=== PATIENT | male | born 1945 | race Caucasian/White ===

== ENCOUNTER 2023-03-21 12:29 | Observation (INO) | payer OTHER, SELFPAY ==
[2023-03-21] VITALS (14 sets, daily range): BP systolic 94–114; BP diastolic 59–77; PULSE 71–118; RESP 16–21; TEMP 36.2–36.8; O2SAT 86–99; BMI 17.9
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
--- NOTE | 2023-03-21 12:43 | XR_ITS ---
WS: [id number] Portable AP upright chest, 03/21/2023 Clinical Data: sob Comparison: None. Findings: There is a 9.0 cm mass in the medial base of the right thorax. The mass shows mixed density and may represent atelectasis and/or pneumonia. There are are interstitial markings in both lower lo bes most consistent with chronic interstitial fibrosis. The upper lobes are clear most consistent wit h emphysema. The diaphragms are flattened. No pneumothorax is seen. The heart size is normal. The aor tic arch and descending thoracic aorta shows calcification and tortuosity. There is an infusion jack ter entering from the right and ending in the superior vena cava. XR/XR chest 1V portable [id number] Impression: 1. 9.0 cm mass in the medial aspect of the lower right pleural space which may represent atelectasis, pneumonia or even a tumor. 2. Chronic interstitial lung disease with upper lobe emphysema. 3. Atherosclerosis and hyperinflation.
--- NOTE | 2023-03-21 12:43 | ECG_ITS ---
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 Measurements Intervals [place] Rate: 100 P: 73 MA: 174 QRS: 81 QRSD: 88 T: 72 QT: 340 QTc: 440 Interpretive Statements SINUS TACHYCARDIA ABNORMAL RHYTHM ECG No previous ECG available for comparison Electronically Signed On 03-23-2023 6:09:05 CDT by Aylin Soto M.D. [id number]
[2023-03-21 13:04] LABS: ABG PCO2 35.1 mmHg (35-45); ABG PH Result 7.48 (7.35-7.45); Arterial Blood Gas Hematocrit 40.8 % (42-52); Base Excess ABG 2.9 mmol/L (-2.0-2.0); Blood Gas Allen Test Pos; Blood Gas Operator Identificat WALCI; Blood Gas Sample Site Radial, right; Blood Gas Sample Type Arterial; HCO3 ABG 26.2 mmol/L (22-26); Oxygen Device NC; PO2 ABG 68.5 mmHg (80.0-100.0)
[2023-03-21 13:08] LABS: Basophils # 0.1 10^3/uL (0.0-0.1); Basophils % 0.7 %; Eosinophils # 0.1 10^3/uL (0.0-0.8); Eosinophils % 1.3 %; Hematocrit 45.2 % (42.0-52.0); Hemoglobin 13.6 g/dL (11.7-16.6); Lymphocytes # 1.3 10^3/uL (0.8-4.8); Lymphocytes % 18.2 %; Mean Corpuscular HGB Conc 30.1 g/dL (30.0-36.0); Mean Corpuscular Hemoglobin 25.6 pg (28.0-34.0); Mean Platelet Volume 8.2 fL (7.4-10.4); Monocytes # 0.7 10^3/uL (0.2-0.9); Monocytes % 9.9 %; Neutrophils # 4.98 10^3/uL (1.8-7.7); Neutrophils % 69.1 %; Nucleated Red Blood Cells % 0 %; Platelet Count 311 10^3/cmm (130-400); Red Blood Count 5.32 10^6/uL (4.1-5.3); Red Cell Distribution Width 17.2 % (12.1-15.1); White Blood Count 7.2 10^3/uL (4.0-10.0)
[2023-03-21] MEDS: ipratropium-albuterol 3 mL Neb INHALATION (13:09)
[2023-03-21 13:20] LABS: D Dimer 1.44 ug/mIFEU (0-0.59)
--- NOTE | 2023-03-21 13:21 | CT_ITS ---
WS: [id number] CT CHEST ANGIOGRAPHY WITH REFORMATS HISTORY: sob, cp, hx cancer, elevated ddimer, tachycardia TECHNIQUE: Contiguous axial images are obtained through the chest during arterial injection of intrav enous contrast. Images are reconstructed to evaluate the pulmonary arteries. MIP imaging also reviewe d. All CT scans at [facility] use at least one of these dose optimization techniques: automat ed exposure control; mA and/or kV adjustment per patient size (includes targeted exams where dose is matched to clinical indication); or iterative reconstruction. CONTRAST: Omnipaque 350; 100 mL IV. DLP: 232.70 mGy.cm COMPARISON: None available. Good opacification of the pulmonary arteries. No pulmonary emboli. Moderate atherosclerotic plaque th oracic aorta. No aneurysm. No RIGHT heart strain. Cardiac chambers are very slightly enlarged. No per icardial or pleural effusions. Advanced centrilobular emphysema. No pulmonary mass. Prior esophagectomy with esophageal pull-through . No prior studies are available to evaluate for interval change. Surgical changes of the esophagus a nd stomach pull-through appear appropriate with no obstruction. No mediastinal or hilar adenopathy. There is a low-attenuation mass in the superior RIGHT lobe of the liver measuring 1.7 cm. Hounsfield units are low suggesting this may be a cyst. No adrenal mass. Numerous nonobstructing calcifications upper pole LEFT kidney. Mild anterior wedging of several thoracic vertebral bodies including T5, T8, T9, T10. No osteoblastic or osteolytic disease. CT/CT angio chest PE protcl [id number] IMPRESSION: 1. No pulmonary embolism. 2. No RIGHT heart strain. 3. Severe centrilobular emphysema. 4. Status post esophagectomy with esophageal pull-through. No mediastinal radha opathy. 5. Indeterminate RIGHT hepatic mass measuring 1.7 cm. Hounsfield units are low suggesting this is likely a cyst. This can be reevaluated on follow-up CT eval uation for metastatic disease. No prior studies for comparison.
[2023-03-21 13:25] LABS: Troponin(5th) Baseline 15 ng/L (0-15)
[2023-03-21 13:28] LABS: Alanine Aminotransferase 48 U/L (0-41); Albumin Level 3.3 g/dL (3.5-5.2); Alkaline Phosphatase 115 U/L (40-130); Anion Gap 14.1 (5-19); Aspartate Amino Transferase 43 U/L (0-40); Blood Urea Nitrogen 13 mg/dL (8-23); Calcium 9.2 mg/dL (8.5-10.5); Carbon Dioxide 27 mmol/L (22-29); Chloride 99 mmol/L (98-107); Globulin 3.5 g/dL (1.3-4.6); Glucose 114 mg/dL (65-115); Lipase 10 U/L (13-60); Osmolality Calculated 283 mOsm/kg (285-295); Potassium 4.1 mmol/L (3.5-5.1); Sodium 136 mmol/L (136-145); Total Bilirubin 0.7 mg/dL (0.15-1.2); Total Protein 6.8 g/dL (6.6-8.7)
[2023-03-21 14:07] LABS: SARS Covid-2 Antigen negative
[2023-03-21] MEDS: iohexol 350 mg/mL 500 mL Btl (per mL) IV (14:08)
--- NOTE | 2023-03-21 14:43 | ECG_ITS ---
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 Measurements Intervals [place] Rate: 103 P: 49 MS: 184 QRS: 73 QRSD: 84 T: 27 QT: 329 QTc: 432 Interpretive Statements SINUS TACHYCARDIA ABNORMAL RHYTHM ECG Compared to ECG 03/21/2023 13:04:04 No significant changes Electronically Signed On 03-23-2023 6:55:02 CDT by Aylin Soto M.D. [id number]
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
--- NOTE | 2023-03-21 15:10 | PC.PHAR ---
PTS STS PT TAKES A MEDICATION TO STIMULATE HIS APATITE BUT DOES NOT KNOW THE NAME OF IT
--- NOTE | 2023-03-21 15:12 | PC.PHAR ---
[facility]ILL[facility] AND [facility] ARE ALSO UNABLE TO CONFIRM THE MEDICATION
[2023-03-21] MEDS: doxycycline 100 MG in sodium chloride 0.9% (plus) 100 ML IV (15:14)
[2023-03-21] MEDS: predniSONE 20 mg Tablet 60 MG PO (15:15)
[2023-03-21 16:00] LABS: Troponin 5 2HR Delta -2 ABS# (0-10)
[2023-03-21] MEDS: enoxaparin 40 mg/0.4 mL Syringe SUBCUT (17:37)
--- NOTE | 2023-03-21 18:36 | USCV_ITS ---
Miguel Boyle Age: 77 Gender: M : 1945 Exam Date: 03/21/2023 20:48 Ordering Phys: Juan José Shannon MD Technologist: RODERICK Exam Location: [facility] [place] Indication: rule out chemotherapy cardiac toxicity. History of COPD. BP: 94 / 59 HR: 91 Rhythm: Sinus Technical Quality: Poor secondary to COPD MEASUREMENTS (Male / Female) Normal Values 2D ECHO LV Diastolic Diameter PLAX 3.4 cm 4.2 - 5.9 / 3.9 - 5.3 cm LV Systolic Diameter PLAX 2.3 cm IVS Diastolic Thickness 1.5 cm 0.6 - 1.0 / 0.6 - 0.9 cm IVS Systolic Thickness 1.7 cm LVPW Diastolic Thickness 1.2 cm 0.6 - 1.0 / 0.6 - 0.9 cm LVPW Systolic Thickness 1.6 cm LVOT Diameter 2.1 cm LV Ejection Fraction 2D Teich 63.4 % LV Ejection Fraction MOD 2C 64.5 % LV Ejection Fraction 2C AL 64.7 % LA Diameter 3.8 cm LA Width 0.0 cm LA Height 3.6 cm RA Width 3.1 cm RA Height 3.8 cm Aorta at Sinotubular Diameter 2.9 cm IVC Diameter 1.8 cm M-MODE Aortic Annulus Diameter 3.1 cm LA Ao Ratio MM 1.4 MV E Point Septal Separation 0.4 cm DOPPLER AV Peak Velocity 93.0 cm/s LVOT Peak Velocity 75.0 cm/s AV Area Cont Eq vti 3.1 cm squared AV Area Cont Eq pk 2.9 cm squared MV Peak Velocity 125.0 cm/s MV Area PHT 2.9 cm squared Mitral E to A Ratio 0.6 MV E' Velocity 33.0 cm/s Mitral E to MV E' Ratio 13.6 Mitral E to LV E' Lateral Ratio 13.6 Mitral E to LV E' Septal Ratio 13.9 TV Peak E Velocity 27.0 cm/s FINDINGS Left Ventricle Normal left ventricular size, systolic function with no regional wall motion abnormalities. Left ventricular ejection fraction is estimated at 60 %. Right Ventricle Normal right ventricular size and systolic function. RVSP could not be calculated due to incomplete tricuspid regurgitation velocity profile. Right Atrium Normal right atrial size. Left Atrium Normal left atrial size. Mitral Valve Mild mitral annular calcification. Thickened mitral valve. No mitral valve stenosis. No mitral valve regurgitation. Aortic Valve Aortic valve not well visualized. No aortic valve stenosis. No aortic valve regurgitation. Tricuspid Valve Structurally normal tricuspid valve. No tricuspid valve stenosis. No tricuspid valve regurgitation. Pulmonic Valve Pulmonic valve not well visualized. Pericardium No pericardial effusion. Aorta Normal size aortic root. IVC Normal IVC dimension with >50% respiratory change of the inferior vena cava. CONCLUSIONS 1. Normal left ventricular size, systolic function with no regional wall motion abnormalities. Left ventricular ejection fraction is estimated at 60 %. 2. No change when compared to study dated 03/11/2023. Aylin Soto MD (Electronically Signed) Final Date: 22 Mar 2023 13:34 S
--- NOTE | 2023-03-21 18:43 | ECG_ITS ---
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 Measurements Intervals [place] Rate: 102 P: 57 KS: 183 QRS: 39 QRSD: 82 T: 65 QT: 337 QTc: 440 Interpretive Statements SINUS TACHYCARDIA WITH OCCASIONAL SUPRAVENTRICULAR PREMATURE COMPLEXES ABNORMAL RHYTHM ECG Compared to ECG 03/21/2023 15:01:42 No significant changes Electronically Signed On 03-23-2023 6:51:46 CDT by Aylin Soto M.D. [id number]
[2023-03-21 19:33] LABS: Troponin 5 6HR 10.95 ng/L (0-15)
[2023-03-21 19:43] LABS: Troponin 5 6HR Delta -4.05 ng/L (0-12)
[2023-03-22] VITALS (7 sets, daily range): BP systolic 94–127; BP diastolic 62–77; PULSE 55–78; RESP 16–20; TEMP 36.4–36.5; O2SAT 87–94
[2023-03-22 02:57] LABS: Anion Gap 12.5 (5-19); Blood Urea Nitrogen 16 mg/dL (8-23); C Reactive Protein 6.8 mg/L (0.0-4.9); Calcium 8.4 mg/dL (8.5-10.5); Carbon Dioxide 25 mmol/L (22-29); Chloride 104 mmol/L (98-107); Glucose 284 mg/dL (65-115); Magnesium 1.8 mg/dL (1.7-2.3); Osmolality Calculated 295 mOsm/kg (285-295); Potassium 4.5 mmol/L (3.5-5.1); Sodium 137 mmol/L (136-145)
--- NOTE | 2023-03-22 06:41 | P.DS_ITS ---
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 Song who is a 77-year-old male has history of recurrent/metastatic esophageal cancer, recently treated with systemic therapy with FOLFOX/Herceptin/Keytruda, follow-up CT PET scan showed excellent response, follows up with Dr. Rebollar, presented to the hospital for mild shortness of breath productive cough clear sputum production, he has remained afebrile, no evidence of chest pain or diarrhea, at home uses 2 L of oxygen, in the hospital he was requiring 3 L on exertion, CTA ruled out PE, CT chest did not show active consolidation, however he was given azithromycin and ceftriaxone for 1 day, patient is not endorsing any significant respiratory distress, he was due for an echo which I requested before his discharge to rule out cardiotoxicity related to his chemotherapy. CT imaging of chest also picked up hypodense area on the liver which could be cyst versus metastatic tumor? Patient is full code, he will be able to go home on oxygen after home oxygen evaluation. He remained hemodynamically stable and afebrile. Physical Exam Narrative: Hemodynamically stable Currently on 3 L Abdomen soft Euvolemic Pleasant and cooperative Nonfocal neuro exam Discharge Data Studies Completed and Pending Completed Studies During Hospitalization Category Date Time Status CTA chest [CT angio chest PE protcl [id number]] Stat Cat Scan 03/21/23 13:21 Completed XR chest 1V portable [id number] Stat Exams 03/21/23 12:43 Completed Pending at discharge Category Date Time Status CT abdomen pelvis wo con [id number] Routine Cat Scan 03/22/23 07:00 Ordered MRSA by PCR Stat Lab 03/21/23 15:43 Received CV. echo complete* [id number] Routine Ultrasound 03/21/23 18:36 Taken Radiology Impressions Chest X-Ray 03/21/23 12:43 Impression: 1. 9.0 cm mass in the medial aspect of the lower right pleural space which may represent atelectasis, pneumonia or even a tumor. 2. Chronic interstitial lung disease with upper lobe emphysema. 3. Atherosclerosis and hyperinflation. Chest CTA 03/21/23 13:21 IMPRESSION: 1. No pulmonary embolism. 2. No RIGHT heart strain. 3. Severe centrilobular emphysema. 4. Status post esophagectomy with esophageal pull-through. No mediastinal adenopathy. 5. Indeterminate RIGHT hepatic mass measuring 1.7 cm. Hounsfield units are low suggesting this is likely a cyst. This can be reevaluated on follow-up CT evaluation for metastatic disease. No prior studies for comparison. Laboratory Results WBC 7.2 10^3/uL (4.0-10.0) 03/21/23 12:52 RBC 5.32 10^6/uL (4.1-5.3) H 03/21/23 12:52 Hgb 13.6 g/dL (11.7-16.6) 03/21/23 12:52 Hct 45.2 % (42.0-52.0) 03/21/23 12:52 MCV 85.0 fl (80-94) 03/21/23 12:52 MCH 25.6 pg (28.0-34.0) L 03/21/23 12:52 MCHC 30.1 g/dL (30.0-36.0) 03/21/23 12:52 RDW 17.2 % (12.1-15.1) H 03/21/23 12:52 Plt Count 311 10^3/cmm (130-400) 03/21/23 12:52 MPV 8.2 fL (7.4-10.4) 03/21/23 12:52 Neut % (Auto) 69.1 % 03/21/23 12:52 Lymph % (Auto) 18.2 % 03/21/23 12:52 Yancey % (Auto) 9.9 % 03/21/23 12:52 Eos % (Auto) 1.3 % 03/21/23 12:52 Baso % (Auto) 0.7 % 03/21/23 12:52 Neut # (Auto) 4.98 10^3/uL (1.8-7.7) 03/21/23 12:52 Lymph # (Auto) 1.3 10^3/uL (0.8-4.8) 03/21/23 12:52 Yancey # (Auto) 0.7 10^3/uL (0.2-0.9) 03/21/23 12:52 Eos # (Auto) 0.1 10^3/uL (0.0-0.8) 03/21/23 12:52 Baso # (Auto) 0.1 10^3/uL (0.0-0.1) 03/21/23 12:52 Nucleated RBC % (auto) 0 % 03/21/23 12:52 Nucleated RBCs # 0.0 /100WBC 03/21/23 12:52 D-Dimer 1.44 ug/mIFEU (0-0.59) H 03/21/23 12:52 Specimen Type Arterial 03/21/23 12:53 Sample Site Radial, right 03/21/23 12:53 ABG pH 7.48 (7.35-7.45) H 03/21/23 12:53 ABG pCO2 35.1 mmHg (35-45) 03/21/23 12:53 ABG pO2 68.5 mmHg (80.0-100.0) L 03/21/23 12:53 ABG HCO3 26.2 mmol/L (22-26) H 03/21/23 12:53 ABG Base Excess 2.9 mmol/L (-2.0-2.0) H 03/21/23 12:53 Ion Test Pos 03/21/23 12:53 Hematocrit 40.8 % (42-52) L 03/21/23 12:53 O2 Delivery Device Nc 03/21/23 12:53 O2 Liters/Min 2.0 % 03/21/23 12:53 [employer] Sales Consultant ID [employer] 03/21/23 12:53 Sodium 137 mmol/L (136-145) 03/22/23 01:57 Potassium 4.5 mmol/L (3.5-5.1) 03/22/23 01:57 Chloride 104 mmol/L (98-107) 03/22/23 01:57 Carbon Dioxide 25 mmol/L (22-29) 03/22/23 01:57 Anion Gap 12.5 (5-19) 03/22/23 01:57 BUN 16 mg/dL (8-23) 03/22/23 01:57 Creatinine 0.4 mg/dL (0.7-1.2) L 03/22/23 01:57 GFR Calculation Not Reportable 03/22/23 01:57 Glucose 284 mg/dL (65-115) H 03/22/23 01:57 Calculated Osmolality 295 mOsm/kg (285-295) 03/22/23 01:57 Calcium 8.4 mg/dL (8.5-10.5) L 03/22/23 01:57 Magnesium 1.8 mg/dL (1.7-2.3) 03/22/23 01:57 Total Bilirubin 0.7 mg/dL (0.15-1.2) 03/21/23 12:52 AST 43 U/L (0-40) H 03/21/23 12:52 ALT 48 U/L (0-41) H 03/21/23 12:52 Alkaline Phosphatase 115 U/L (40-130) 03/21/23 12:52 Troponin T Baseline 15 ng/L (0-15) 03/21/23 12:52 Troponin T 120 Minute 13.00 ng/L (0-15) 03/21/23 15:09 Delta Troponin T -2 ABS# (0-10) L 03/21/23 15:09 Troponin T Hi Sens 6Hr 10.95 ng/L (0-15) 03/21/23 19:03 Troponin T Hi Sens 6Hr Delta -4.05 ng/L (0-12) L 03/21/23 19:03 C-Reactive Protein 6.8 mg/L (0.0-4.9) H 03/22/23 01:57 Total Protein 6.8 g/dL (6.6-8.7) 03/21/23 12:52 Albumin 3.3 g/dL (3.5-5.2) L 03/21/23 12:52 Globulin 3.5 g/dL (1.3-4.6) 03/21/23 12:52 Lipase 10 U/L (13-60) L 03/21/23 12:52 SARS-CoV-2 Ag (Rapid) negative 03/21/23 13:40 Vitals Last Vital Signs Temp 97.5 F L 03/22/23 04:00 Pulse 73 03/22/23 06:22 Resp 16 03/22/23 04:00 BP 126/75 03/22/23 04:00 Pulse Ox 94 03/22/23 04:00 O2 Del Method Nasal Cannula 03/22/23 04:00 O2 Flow Rate 3 03/22/23 04:00 Discharge Plan Discharge Patient Disposition: Home Condition: Stable Prescriptions: New aspirin 81 mg tablet,delayed release (DR/EC) 81 mg PO DAILY Qty: 60 0RF Continued fluticasone propion-salmeterol [Wixela Inhub] 250-50 mcg/dose blister with device 1 inh inhalation BID Spiriva Respimat 2.5 mcg/actuation mist 2 puff inhalation DAILY albuterol sulfate [ProAir HFA] 90 mcg/actuation HFA aerosol inhaler 2 puff inhalation Q6H PRN (Reason: Shortness Of Breath) metformin 500 mg tablet 500 mg PO DAILY famotidine [Pepcid] 20 mg tablet 20 mg PO BID atorvastatin 20 mg tablet 20 mg PO DAILY cholecalciferol (vitamin D3) 50 mcg (2,000 unit) capsule 50 mcg PO DAILY Calcium 500 500 mg calcium (1,250 mg) Tablet 500 mg PO BID Discharge Orders: Discharge Order (Routine); Ordered 03/22/23 Ordered By: Juan José Shannon Referrals: Lynette Velazquez MD [Primary Care Provider] - 03/28/23 10:30 am Discharge Diet: Cardiac Discharge Activity: Increase activity as tolerated Patient Instructions: Opioid Safety Discharge Attestations Time Spent in Discharge Care*: greater than 30 min Quality Metrics Clinical Quality Measures [ No reported AMI, CVA or VTE this stay] Coding Level of Care Code Acute Code for Chg Fwd Diagnoses Hypoxia R09.02 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
--- NOTE | 2023-03-22 07:00 | CT_ITS ---
WS: [id number] CT ABDOMEN AND PELVIS NONCONTRAST HISTORY: Rule out mets TECHNIQUE: Imaging performed through the abdomen and pelvis. Coronal and sagittal reformats are submi tted. All CT scans at [facility] use at least one of these dose optimization techniques: auto mated exposure control; mA and/or kV adjustment per patient size (includes targeted exams where dose is matched to clinical indication); or iterative reconstruction. DLP: 396.19 mGy.cm COMPARISON: CT angiogram chest 03/21/2023 Lower thorax: Severe emphysematous changes at the lung bases with pulmonary fibrosis and compressive atelectasis. Heart size is normal. Patient has a known esophagectomy with esophageal pull-through. Th ere is dilatation of the pull-through portion of the esophagus but no obvious mass identified on this unenhanced exam. No prior studies for comparison. Atherosclerosis in the visualized aorta. Liver: Heterogeneity throughout the liver. There are a few low-attenuation nodules within the liver. The largest towards the RIGHT diaphragm measures 1.7 x 1.2 cm. These very well may be cysts. Some of these are too small to characterize. They cannot be characterized further without IV contrast. Compar lizbeth to prior studies would be very helpful. Gallbladder: Mildly contracted. Increased density in the dependent gallbladder may be stones or sludg e. No significant wall thickening or adjacent inflammation. Pancreas: Pancreatic atrophy. Spleen: Normal. Adrenal glands: Normal. No mass. Right kidney: Multiple low-attenuation masses. No renal obstruction. Largest mass is exophytic from t he mid kidney measuring 5.0 x 4.7 cm. A smaller mass more anteriorly has increased attenuation. Left kidney: Nonobstructing calcifications upper pole. No obstruction. Aorta: Moderate to severe atherosclerosis abdominal aorta. Infrarenal aneurysm measures 3.7 x 3.9 cm. Atherosclerosis continues into the common iliac arteries. Moderate calcification at the origin of th e SMA and also within the mid to distal SMA. No free fluid, intraperitoneal air or significant lymphadenopathy. GI tract: No small bowel obstruction. Row of surgical sutures in the RIGHT colon. There is no obstruc tion pattern although there is increased fecal material in the RIGHT colon. Prior appendectomy. Moder ate colonic diverticular burden in the mid to distal colon. No evidence for acute diverticulitis. Abdominal wall: Negative. No hernia. Pelvis: Markedly distended urinary bladder. There is increased density within the bladder from contra st examination performed on 03/21/2023. No free fluid or adenopathy. Osseous structures: Unremarkable. CT/CT abdomen pelvis wo con [id number] IMPRESSION: 1. Status post esophagectomy with esophageal pull-through. 2. Severe emphysematous changes with pulmonary fibrosis at the lung bases. 3. Low-attenuation masses within the liver and RIGHT kidney. Cannot be further evaluated without IV contrast. These may be benign cysts or complex cysts. Met astatic disease not excluded. 4. Infrarenal abdominal aortic aneurysm measuring 3.7 x 3.9 cm. 5. Prior appendectomy. 6. No ascites or free air. 7. No adenopathy identified.
[2023-03-22] MEDS: azithromycin 250 mg Tablet 500 MG PO (08:31)
[2023-03-22] MEDS: sennosides-docusate Tablet 1 TAB PO (08:31)
[2023-03-22] MEDS: cefTRIAXone 1,000 MG in sodium chloride 0.9% (plus) 50 ML 100 MG IV (08:33)
[2023-03-22] MEDS: ipratropium-albuterol 3 mL Neb INHALATION (08:38)
[2023-03-22] MEDS: budesonide 0.5 mg/2 mL Neb INHALATION (08:38)
== END 2023-03-22 14:12 | disposition home or self-care (01) ==
LOC: ER 14:55 → MEDSURG 16:07
PROVIDERS: Admitting Provider Internal Medicine; Emergency Provider Emergency Medicine; PCP Family Medicine; Visit Provider Internal Medicine
DX: R06.02 Shortness of breath (principal); R09.02 Hypoxemia; J43.2 Centrilobular emphysema; Z90.49 Acquired absence of other specified parts of digestive tract; C79.9 Secondary malignant neoplasm of unspecified site; Z85.01 Personal history of malignant neoplasm of esophagus; Z99.81 Dependence on supplemental oxygen; Z87.891 Personal history of nicotine dependence; R00.0 Tachycardia, unspecified; Z79.899 Other long term (current) drug therapy; E46 Unspecified protein-calorie malnutrition; Z68.1 Body mass index [BMI] 19.9 or less, adult; R16.0 Hepatomegaly, not elsewhere classified
CPT/HCPCS: 36415; 36591; 36600; 71045; 71275; 74176; 80048; 80053; 82803; 83690; 83735; 84484; 85025; 85378; 86140; 87426; 87641; 93005; 93306; 94640; 94760; 96365; 96367; 96372; 99285; G0378; J0696; J1650; J3490; J7512; J7626; Q0144; Q9967

== ENCOUNTER 2023-03-27 07:30 | Oncology outpatient (recurring) (ONCR) | payer OTHER, SELFPAY ==
--- NOTE | 2023-03-11 16:30 | USCV_ITS ---
Miguel Boyle Age: 77 Gender: M : 1945 Exam Date: 03/11/2023 17:11 Ordering Phys: Margie Lema MD Technologist: Terry Lee Exam Location: [facility] [place] Indication: follow up BP: 108 / 68 HR: 82 Rhythm: Sinus Technical Quality: Adequate MEASUREMENTS (Male / Female) Normal Values 2D ECHO LVOT Diameter 2.2 cm LV Ejection Fraction MOD 2C 59.9 % LV Ejection Fraction 2C AL 61.1 % LA Diameter 3.3 cm LA Width 2.9 cm LA Height 4.6 cm RA Width 4.0 cm RA Height 4.2 cm Aorta at Sinotubular Diameter 2.4 cm IVC Diameter 1.5 cm M-MODE Aortic Annulus Diameter 2.6 cm LA Ao Ratio MM 1.3 MV E Point Septal Separation 0.7 cm DOPPLER Right Atrial Pressure 3.0 mmHg FINDINGS Left Ventricle Right Ventricle Right Atrium Left Atrium Mitral Valve Aortic Valve Tricuspid Valve Pulmonic Valve Pericardium Aorta IVC CONCLUSIONS This is a limited echocardiogram performed to assess LV systolic function. LV systolic function is normal with EF of 60 to 65%. No regional wall motion normalities are seen. No comparison studies are available Riki Michel MD (Electronically Signed) Final Date: 11 Mar 2023 18:33 S
[2023-03-27 07:55] LABS: Basophils # 0.1 10^3/uL (0.0-0.1); Eosinophils # 0.2 10^3/uL (0.0-0.8); Eosinophils % 2.4 %; Hematocrit 37.9 % (42.0-52.0); Hemoglobin 11.6 g/dL (11.7-16.6); Lymphocytes # 1.2 10^3/uL (0.8-4.8); Lymphocytes % 14.8 %; Mean Corpuscular HGB Conc 30.6 g/dL (30.0-36.0); Mean Corpuscular Hemoglobin 26.1 pg (28.0-34.0); Mean Corpuscular Volume 85.4 fl (80-94); Monocytes # 0.7 10^3/uL (0.2-0.9); Monocytes % 9.2 %; Neutrophils # 5.59 10^3/uL (1.8-7.7); Neutrophils % 71.6 %; Nucleated Red Blood Cells % 0 %; Platelet Count 282 10^3/cmm (130-400); Red Blood Count 4.44 10^6/uL (4.1-5.3); Red Cell Distribution Width 17.2 % (12.1-15.1); White Blood Count 7.8 10^3/uL (4.0-10.0)
[2023-03-27 08:00] VITALS: BP 108/72; PULSE 72; RESP 18; TEMP 35.9; O2SAT 98; BMI 17.7
[2023-03-27 08:14] LABS: Alanine Aminotransferase 54 U/L (0-41); Alkaline Phosphatase 104 U/L (40-130); Anion Gap 9.7 (5-19); Aspartate Amino Transferase 44 U/L (0-40); Blood Urea Nitrogen 14 mg/dL (8-23); Calcium 8.6 mg/dL (8.5-10.5); Carbon Dioxide 27 mmol/L (22-29); Chloride 104 mmol/L (98-107); Globulin 3.1 g/dL (1.3-4.6); Glucose 99 mg/dL (65-115); Osmolality Calculated 285 mOsm/kg (285-295); Potassium 3.7 mmol/L (3.5-5.1); Sodium 137 mmol/L (136-145); Total Bilirubin 0.5 mg/dL (0.15-1.2); Total Protein 6.1 g/dL (6.6-8.7)
[2023-03-27 09:51] LABS: Thyroid Stimulating Hormone 1.76 uIU/mL (0.27-4.20)
[2023-03-27] MEDS: acetaminophen 325 mg Tablet 650 MG PO (10:07)
[2023-03-27] MEDS: diphenhydrAMINE 25 mg Capsule PO (10:07)
[2023-03-27] MEDS: sodium chloride 0.9% 250 ML 50 ML IV (10:09)
[2023-03-27 11:38] VITALS: BP 109/71; PULSE 80; RESP 18; TEMP 36.1; O2SAT 98
== END 2023-04-03 23:59 | disposition home or self-care (01) ==
PROVIDERS: Nurse Practitioner Family; PCP Family Medicine; Visit Provider Internal Medicine Hematology & Oncology
DX: Z51.11 Encounter for antineoplastic chemotherapy (principal); C15.5 Malignant neoplasm of lower third of esophagus; C78.7 Secondary malignant neoplasm of liver and intrahepatic bile duct; C77.8 Secondary and unspecified malignant neoplasm of lymph nodes of multiple regions; R74.8 Abnormal levels of other serum enzymes; R21 Rash and other nonspecific skin eruption; Z79.52 Long term (current) use of systemic steroids; Z79.899 Other long term (current) drug therapy
CPT/HCPCS: 80053; 84443; 85025; 93308; 96375; 96413; 99204; 99214; J1642; J7050; Q5112

== ENCOUNTER 2023-04-18 08:55 | Oncology outpatient (recurring) (ONCR) | payer OTHER, SELFPAY ==
[2023-04-18 09:18] VITALS: BP 116/63; PULSE 102; RESP 18; TEMP 36.6; O2SAT 88
[2023-04-18 09:29] LABS: Basophils # 0.1 10^3/uL (0.0-0.1); Eosinophils # 0.2 10^3/uL (0.0-0.8); Hematocrit 37.3 % (42.0-52.0); Hemoglobin 11.5 g/dL (11.7-16.6); Lymphocytes # 1.3 10^3/uL (0.8-4.8); Mean Corpuscular HGB Conc 30.8 g/dL (30.0-36.0); Mean Corpuscular Hemoglobin 26.4 pg (28.0-34.0); Mean Corpuscular Volume 85.6 fl (80-94); Mean Platelet Volume 8.1 fL (7.4-10.4); Monocytes # 0.8 10^3/uL (0.2-0.9); Monocytes % 14.1 %; Neutrophils # 3.53 10^3/uL (1.8-7.7); Neutrophils % 59.6 %; Nucleated Red Blood Cells % 0 %; Platelet Count 280 10^3/cmm (130-400); Red Blood Count 4.36 10^6/uL (4.1-5.3); Red Cell Distribution Width 18.5 % (12.1-15.1); White Blood Count 5.9 10^3/uL (4.0-10.0)
[2023-04-18 10:09] LABS: Alanine Aminotransferase 18 U/L (0-41); Albumin Level 3.3 g/dL (3.5-5.2); Alkaline Phosphatase 99 U/L (40-130); Anion Gap 10.9 (5-19); Aspartate Amino Transferase 19 U/L (0-40); Blood Urea Nitrogen 11 mg/dL (8-23); Calcium 8.7 mg/dL (8.5-10.5); Carbon Dioxide 27 mmol/L (22-29); Chloride 106 mmol/L (98-107); Glucose 101 mg/dL (65-115); Osmolality Calculated 290 mOsm/kg (285-295); Potassium 3.9 mmol/L (3.5-5.1); Sodium 140 mmol/L (136-145); Total Bilirubin 0.6 mg/dL (0.15-1.2); Total Protein 6.3 g/dL (6.6-8.7)
[2023-04-18] MEDS: diphenhydrAMINE 25 mg Capsule PO (11:46)
[2023-04-18] MEDS: acetaminophen 325 mg Tablet 650 MG PO (11:46)
[2023-04-18] MEDS: sodium chloride 0.9% 250 ML 100 ML IV (12:30)
[2023-04-18] MEDS: pembrolizumab 400 MG in sodium chloride 0.9% 250 ML 532 MG IV (14:13)
[2023-04-18 16:29] VITALS: BP 115/65; PULSE 86; RESP 16; TEMP 36.3; O2SAT 93
== END 2023-04-18 23:59 | disposition home or self-care (01) ==
PROVIDERS: Nurse Practitioner Family; PCP Family Medicine; Visit Provider Internal Medicine Hematology & Oncology
DX: Z51.12 Encounter for antineoplastic immunotherapy (principal); C15.8 Malignant neoplasm of overlapping sites of esophagus; C78.7 Secondary malignant neoplasm of liver and intrahepatic bile duct; C78.01 Secondary malignant neoplasm of right lung; C78.02 Secondary malignant neoplasm of left lung; C77.8 Secondary and unspecified malignant neoplasm of lymph nodes of multiple regions; Z90.09 Acquired absence of other part of head and neck; Z79.899 Other long term (current) drug therapy; Z87.891 Personal history of nicotine dependence
CPT/HCPCS: 80053; 85025; 96375; 96413; 96415; 96417; 99214; J1642; J7050; J9271; Q5112

== ENCOUNTER 2023-04-25 12:02 | Outpatient (CLI) | payer OTHER, SELFPAY ==
--- NOTE | 2023-04-25 12:14 | CT_ITS ---
WS: [id number] CT ABDOMEN AND PELVIS WITH CONTRAST HISTORY: MASSES IN KIDNEY AND LIVER TECHNIQUE: Imaging performed of the abdomen and pelvis with IV contrast. Single phase imaging of the abdomen. Coronal and sagittal reformats are submitted. All CT scans at [facility] use at [address] one of these dose optimization techniques: automated exposure control; mA and/or kV adjustment per patient size (includes targeted exams where dose is matched to clinical indication); or iterative re construction. IV CONTRAST: Omnipaque 350; 100 mL IV. Oral contrast: Yes. DLP: 411.82 mGy.cm COMPARISON: 03/22/2023 Lower thorax: Severe pulmonary fibrotic changes at the lung bases. Heart is normal size. Status post esophagectomy with pull-through. No recurrent mass identified in the portion of the stomach visualize d. Liver/biliary system: Several scattered low-attenuation masses within the liver. These masses do not enhance and are consistent with cysts. The largest is lobulated towards the RIGHT diaphragmatic surfa ce of the maximum diameter 1.7 cm. Normal portal vein. Gallbladder: Normal. No gallstones or wall thickening. No pericholecystic fluid. Pancreas: Fatty replacement atrophy. Spleen: Normal size spleen. No mass or infarct. Adrenal glands: Normal. Right kidney: Normal size kidney. There are 2 exophytic cysts from the RIGHT kidney the largest exten ds laterally measuring 4.3 x 4.5 cm. There is a smaller cortical cyst in the lower pole with a maximu m diameter of 1.1 cm. No obstruction. Left kidney: Nonobstructing calcifications in the superior kidney. No obstruction. Aorta: Atherosclerosis aorta. Transverse diameter of 3.8 cm. Lymphadenopathy: None. Free fluid: None. GI tract: No small bowel obstruction. Numerous diverticula in the distal colon with no acute divertic ulitis. Surgical anastomotic sutures at the cecum. Prior appendectomy. Abdominal wall: Unremarkable abdominal wall. No hernia. Pelvis: No free fluid or adenopathy within the pelvis. Markedly distended urinary bladder. Bladder ex tends over a length of 15 cm. Bones: Sclerotic focus in the proximal LEFT femur is a bone island. CT/CT abdomen pelvis w con* [id number] IMPRESSION: 1. Hepatic and renal cysts. No metastatic disease to the liver or adrenal glan ds. 2. Status post esophagectomy with esophageal pull-through. 3. Stable infrarenal abdominal aortic aneurysm at 3.8 cm. 4. Prior appendectomy. 5. No ascites or adenopathy.
[2023-04-25] MEDS: iohexol 350 mg/mL 500 mL Btl (per mL) IV (12:16)
[2023-04-25] MEDS: iohexol 350 mg/mL 500 mL Btl (per mL) PO (12:16)
[2023-04-25 13:35] VITALS: PULSE 68; RESP 18; O2SAT 97
[2023-04-25] MEDS: albuterol 2.5 mg/3 mL Neb INHALATION (13:35)
[2023-04-25 13:40] VITALS: PULSE 71
== END 2023-04-25 12:03 | disposition home or self-care (01) ==
PROVIDERS: PCP Family Medicine; Visit Provider Family Medicine
DX: R16.0 Hepatomegaly, not elsewhere classified (principal); N28.89 Other specified disorders of kidney and ureter
CPT/HCPCS: 74177; 94060; 94726; 94729; J7613; Q9967

== ENCOUNTER 2023-05-02 10:25 | Oncology outpatient (recurring) (ONCR) | payer OTHER, SELFPAY ==
[2023-05-02 10:38] VITALS: BP 108/71; PULSE 100; RESP 18; TEMP 36.3; O2SAT 92
[2023-05-02 10:49] LABS: Basophils # 0.1 10^3/uL (0.0-0.1); Basophils % 1.4 %; Eosinophils # 0.3 10^3/uL (0.0-0.8); Eosinophils % 4.6 %; Hematocrit 40.1 % (42.0-52.0); Hemoglobin 12.2 g/dL (11.7-16.6); Lymphocytes # 1.5 10^3/uL (0.8-4.8); Lymphocytes % 23.4 %; Mean Corpuscular HGB Conc 30.4 g/dL (30.0-36.0); Mean Corpuscular Hemoglobin 25.8 pg (28.0-34.0); Mean Corpuscular Volume 84.8 fl (80-94); Mean Platelet Volume 8.4 fL (7.4-10.4); Monocytes # 0.8 10^3/uL (0.2-0.9); Monocytes % 11.8 %; Neutrophils # 3.69 10^3/uL (1.8-7.7); Neutrophils % 58.3 %; Nucleated Red Blood Cells % 0 %; Platelet Count 284 10^3/cmm (130-400); Red Blood Count 4.73 10^6/uL (4.1-5.3); Red Cell Distribution Width 18.1 % (12.1-15.1); White Blood Count 6.3 10^3/uL (4.0-10.0)
[2023-05-02 11:16] LABS: Alanine Aminotransferase 28 U/L (0-41); Albumin Level 3.7 g/dL (3.5-5.2); Alkaline Phosphatase 92 U/L (40-130); Anion Gap 12.2 (5-19); Aspartate Amino Transferase 29 U/L (0-40); Blood Urea Nitrogen 10 mg/dL (8-23); Calcium 8.7 mg/dL (8.5-10.5); Carbon Dioxide 30 mmol/L (22-29); Chloride 104 mmol/L (98-107); Glucose 121 mg/dL (65-115); Osmolality Calculated 294 mOsm/kg (285-295); Potassium 4.2 mmol/L (3.5-5.1); Sodium 142 mmol/L (136-145); Total Bilirubin 0.6 mg/dL (0.15-1.2); Total Protein 6.7 g/dL (6.6-8.7)
[2023-05-02] MEDS: sodium chloride 0.9% 250 ML 75 ML IV (11:41)
[2023-05-02] MEDS: acetaminophen 325 mg Tablet 650 MG PO (11:44)
[2023-05-02] MEDS: diphenhydrAMINE 25 mg Capsule PO (11:44)
[2023-05-02] MEDS: SODIUM CHLORIDE 0.9% IV (11:59)
[2023-05-02] MEDS: TRASTUZUMAB DTTB IV (11:59)
[2023-05-02 14:45] VITALS: BP 96/71; PULSE 98; RESP 16; TEMP 37.3; O2SAT 90
== END 2023-05-03 23:59 | disposition home or self-care (01) ==
PROVIDERS: PCP Family Medicine; Visit Provider Internal Medicine Hematology & Oncology
DX: C15.5 Malignant neoplasm of lower third of esophagus (principal); Z51.11 Encounter for antineoplastic chemotherapy; C78.7 Secondary malignant neoplasm of liver and intrahepatic bile duct; C77.8 Secondary and unspecified malignant neoplasm of lymph nodes of multiple regions; C78.01 Secondary malignant neoplasm of right lung; C78.02 Secondary malignant neoplasm of left lung; R21 Rash and other nonspecific skin eruption; Z79.52 Long term (current) use of systemic steroids; Z79.899 Other long term (current) drug therapy
CPT/HCPCS: 80053; 85025; 96375; 96413; 96415; 99214; J1642; J7050; Q5112

== ENCOUNTER → 2023-05-28 08:45 | Outpatient (BNVA) | payer OTHER, SELFPAY | PROVIDERS: PCP Family Medicine; Visit Provider Internal Medicine Hematology & Oncology | DX: C15.9 Malignant neoplasm of esophagus, unspecified (principal) | CPT/HCPCS: 80053; 84443; 85025 ==

== ENCOUNTER 2023-05-30 11:00 | Oncology outpatient (recurring) (ONCR) | payer OTHER, SELFPAY ==
[2023-05-16 11:40] VITALS: BMI 19.8
[2023-05-16] MEDS: acetaminophen 325 mg Tablet 650 MG PO (11:56)
[2023-05-16] MEDS: diphenhydrAMINE 25 mg Capsule PO (11:57)
[2023-05-16] MEDS: sodium chloride 0.9% 250 ML 75 ML IV (11:58)
[2023-05-16 14:25] VITALS: BP 106/66; PULSE 92; RESP 18; TEMP 35.9; O2SAT 96
[2023-05-30] MEDS: acetaminophen 325 mg Tablet 650 MG PO (11:28)
[2023-05-30] MEDS: diphenhydrAMINE 25 mg Capsule PO (11:28)
[2023-05-30] MEDS: sodium chloride 0.9% 250 ML 75 ML IV (11:40)
[2023-05-30] MEDS: pembrolizumab 400 MG in sodium chloride 0.9% 250 ML 532 MG IV (11:55)
[2023-05-30 13:45] VITALS: BP 94/58; PULSE 100; RESP 16; TEMP 36.6; O2SAT 86
== END 2023-05-30 23:59 | disposition home or self-care (01) ==
PROVIDERS: PCP Family Medicine; Visit Provider Internal Medicine Hematology & Oncology
DX: Z51.12 Encounter for antineoplastic immunotherapy (principal); C78.7 Secondary malignant neoplasm of liver and intrahepatic bile duct; C78.01 Secondary malignant neoplasm of right lung; C78.02 Secondary malignant neoplasm of left lung; C77.2 Secondary and unspecified malignant neoplasm of intra-abdominal lymph nodes; Z85.01 Personal history of malignant neoplasm of esophagus; Z79.899 Other long term (current) drug therapy
CPT/HCPCS: 96413; 96415; 96417; 99214; J1642; J7050; J9271; Q5112

== ENCOUNTER → 2023-06-10 11:04 | Outpatient (BNVA) | payer OTHER, SELFPAY | PROVIDERS: PCP Family Medicine; Visit Provider Internal Medicine Pulmonary Disease | DX: J44.9 Chronic obstructive pulmonary disease, unspecified (principal); Z91.89 Other specified personal risk factors, not elsewhere classified; C15.9 Malignant neoplasm of esophagus, unspecified; Z99.81 Dependence on supplemental oxygen | CPT/HCPCS: 99204 ==

== ENCOUNTER 2023-06-27 08:46 | Oncology outpatient (recurring) (ONCR) | payer OTHER, SELFPAY ==
[2023-06-13 12:46] LABS: Basophils # 0.1 10^3/uL (0.0-0.1); Basophils % 1.3 %; Eosinophils # 0.2 10^3/uL (0.0-0.8); Eosinophils % 2.5 %; Hematocrit 39.2 % (42.0-52.0); Hemoglobin 12.2 g/dL (11.7-16.6); Lymphocytes # 1.3 10^3/uL (0.8-4.8); Lymphocytes % 16.3 %; Mean Corpuscular HGB Conc 31.1 g/dL (30.0-36.0); Mean Corpuscular Hemoglobin 26.6 pg (28.0-34.0); Mean Corpuscular Volume 85.6 fl (80-94); Mean Platelet Volume 8.6 fL (7.4-10.4); Monocytes # 0.8 10^3/uL (0.2-0.9); Neutrophils # 5.51 10^3/uL (1.8-7.7); Neutrophils % 69.4 %; Nucleated Red Blood Cells % 0 %; Platelet Count 291 10^3/cmm (130-400); Red Blood Count 4.58 10^6/uL (4.1-5.3); White Blood Count 7.9 10^3/uL (4.0-10.0)
[2023-06-13 13:01] LABS: Alanine Aminotransferase 26 U/L (0-41); Albumin Level 3.9 g/dL (3.5-5.2); Alkaline Phosphatase 93 U/L (40-130); Anion Gap 12.3 (5-19); Aspartate Amino Transferase 27 U/L (0-40); Blood Urea Nitrogen 9 mg/dL (8-23); Calcium 9.4 mg/dL (8.5-10.5); Carbon Dioxide 30 mmol/L (22-29); Chloride 103 mmol/L (98-107); Globulin 2.9 g/dL (1.3-4.6); Glucose 102 mg/dL (65-115); Osmolality Calculated 291 mOsm/kg (285-295); Potassium 4.3 mmol/L (3.5-5.1); Sodium 141 mmol/L (136-145); Total Bilirubin 0.5 mg/dL (0.15-1.2); Total Protein 6.8 g/dL (6.6-8.7)
[2023-06-13] MEDS: sodium chloride 0.9% 250 ML 75 ML IV (14:01)
[2023-06-13] MEDS: acetaminophen 325 mg Tablet 650 MG PO (14:04)
[2023-06-13] MEDS: diphenhydrAMINE 25 mg Capsule PO (14:05)
[2023-06-13 15:15] VITALS: BP 118/75; PULSE 98; RESP 16; TEMP 36.2; O2SAT 95
[2023-06-27 08:46] VITALS: BMI 21.2
[2023-06-27 08:47] VITALS: BP 122/70; PULSE 73; RESP 18; TEMP 36.3; O2SAT 98
[2023-06-27 09:04] LABS: Basophils # 0.1 10^3/uL (0.0-0.1); Basophils % 1.2 %; Eosinophils # 0.3 10^3/uL (0.0-0.8); Eosinophils % 4.2 %; Hematocrit 37.8 % (37-53); Lymphocytes # 1.1 10^3/uL (0.8-4.8); Mean Corpuscular HGB Conc 31.2 g/dL (30-55); Mean Corpuscular Hemoglobin 26.8 pg (27-33); Mean Corpuscular Volume 85.7 fl (82-101); Mean Platelet Volume 8.4 fL (7.4-10.4); Monocytes # 0.8 10^3/uL (0.2-0.9); Monocytes % 11.1 %; Neutrophils # 4.99 10^3/uL (1.8-7.7); Neutrophils % 68.2 %; Nucleated Red Blood Cells % 0 %; Platelet Count 243 10^3/cmm (157-399); Red Blood Count 4.41 10^6/uL (3.85-5.65); Red Cell Distribution Width 16.3 % (12.1-15.1); White Blood Count 7.32 10^3/uL (3.29-11.43)
[2023-06-27 09:25] LABS: Alanine Aminotransferase 22 U/L (0-41); Albumin Level 3.8 g/dL (3.5-5.2); Alkaline Phosphatase 98 U/L (40-130); Anion Gap 11.9 (5-19); Aspartate Amino Transferase 26 U/L (0-40); Blood Urea Nitrogen 9 mg/dL (8-23); Calcium 8.9 mg/dL (8.5-10.5); Carbon Dioxide 30 mmol/L (22-29); Chloride 103 mmol/L (98-107); Globulin 3.1 g/dL (1.3-4.6); Glucose 149 mg/dL (65-115); Osmolality Calculated 293 mOsm/kg (285-295); Potassium 3.9 mmol/L (3.5-5.1); Sodium 141 mmol/L (136-145); Total Bilirubin 0.5 mg/dL (0.15-1.2); Total Protein 6.9 g/dL (6.6-8.7)
[2023-06-27] MEDS: acetaminophen 325 mg Tablet 650 MG PO (12:21)
[2023-06-27] MEDS: diphenhydrAMINE 25 mg Capsule PO (12:21)
[2023-06-27] MEDS: sodium chloride 0.9% 250 ML 75 ML IV (12:21)
[2023-06-27 14:28] VITALS: BP 132/78; PULSE 96; RESP 16; TEMP 37; O2SAT 90
== END 2023-07-04 23:59 | disposition home or self-care (01) ==
PROVIDERS: Internal Medicine Medical Oncology; PCP Nurse Practitioner; Visit Provider Internal Medicine Hematology & Oncology
DX: Z51.12 Encounter for antineoplastic immunotherapy (principal); Z53.9 Procedure and treatment not carried out, unspecified reason; C15.5 Malignant neoplasm of lower third of esophagus; C78.7 Secondary malignant neoplasm of liver and intrahepatic bile duct; C77.8 Secondary and unspecified malignant neoplasm of lymph nodes of multiple regions; C78.01 Secondary malignant neoplasm of right lung; C78.02 Secondary malignant neoplasm of left lung; J44.1 Chronic obstructive pulmonary disease with (acute) exacerbation; Z99.81 Dependence on supplemental oxygen; Z79.899 Other long term (current) drug therapy
CPT/HCPCS: 80053; 85025; 96413; 99214; J1642; J7050; Q5112

== ENCOUNTER 2023-07-11 08:53 | Oncology outpatient (recurring) (ONCR) | payer OTHER, SELFPAY ==
[2023-07-11 08:55] VITALS: BMI 21.1
[2023-07-11 08:56] VITALS: BP 106/69; PULSE 85; RESP 18; TEMP 35.9; O2SAT 97
[2023-07-11 09:15] LABS: Basophils # 0.1 10^3/uL (0.0-0.1); Eosinophils # 0.2 10^3/uL (0.0-0.8); Eosinophils % 3.4 %; Hematocrit 39.2 % (37-53); Lymphocytes % 14.3 %; Mean Corpuscular HGB Conc 31.6 g/dL (30-55); Mean Corpuscular Hemoglobin 26.8 pg (27-33); Mean Corpuscular Volume 84.7 fl (82-101); Monocytes # 0.7 10^3/uL (0.2-0.9); Monocytes % 9.8 %; Neutrophils % 71.1 %; Nucleated Red Blood Cells % 0 %; Platelet Count 272 10^3/cmm (157-399); Red Blood Count 4.63 10^6/uL (3.85-5.65); Red Cell Distribution Width 16.1 % (12.1-15.1); White Blood Count 7.04 10^3/uL (3.29-11.43)
[2023-07-11 09:43] LABS: Alanine Aminotransferase 16 U/L (0-41); Alkaline Phosphatase 94 U/L (40-130); Anion Gap 10.7 (5-19); Aspartate Amino Transferase 21 U/L (0-40); Blood Urea Nitrogen 15 mg/dL (8-23); Carbon Dioxide 30 mmol/L (22-29); Chloride 105 mmol/L (98-107); Globulin 2.9 g/dL (1.3-4.6); Glucose 117 mg/dL (65-115); Osmolality Calculated 296 mOsm/kg (285-295); Potassium 3.7 mmol/L (3.5-5.1); Sodium 142 mmol/L (136-145); Total Bilirubin 0.7 mg/dL (0.15-1.2); Total Protein 6.9 g/dL (6.6-8.7)
[2023-07-11 10:31] VITALS: BP 117/70; PULSE 57; RESP 18; TEMP 36.6; O2SAT 93
[2023-07-11] MEDS: sodium chloride 0.9% 250 ML 75 ML IV (10:55)
[2023-07-11] MEDS: acetaminophen 325 mg Tablet 650 MG PO (10:56)
[2023-07-11] MEDS: diphenhydrAMINE 25 mg Capsule PO (10:56)
[2023-07-11] MEDS: pembrolizumab 400 MG in sodium chloride 0.9% 250 ML 532 MG IV (12:14)
[2023-07-11 13:09] VITALS: BP 112/68; PULSE 78; RESP 17; TEMP 36.5; O2SAT 99
== END 2023-07-11 23:59 | disposition home or self-care (01) ==
PROVIDERS: Nurse Practitioner Family; PCP Nurse Practitioner; Visit Provider Internal Medicine Medical Oncology
DX: C15.9 Malignant neoplasm of esophagus, unspecified; J44.9 Chronic obstructive pulmonary disease, unspecified; Z79.899 Other long term (current) drug therapy; Z51.11 Encounter for antineoplastic chemotherapy
CPT/HCPCS: 80053; 84443; 85025; 96413; 96417; 99215; J1642; J7050; J9271; Q5112

== ENCOUNTER 2023-07-23 14:29 | Outpatient (CLI) | payer OTHER, SELFPAY ==
--- NOTE | 2023-07-23 14:45 | USCV_ITS ---
Miguel Boyle Age: 78 Gender: M : 1945 Exam Date: 07/23/2023 14:49 Ordering Phys: Rojelio Davidson MD Technologist: ELIAZAR Exam Location: [facility] [place] Indication: SHORTNESS OF BREATH, HI RISK MEDS BP: 132 / 63 HR: 62 Rhythm: Sinus Technical Quality: Adequate MEASUREMENTS (Male / Female) Normal Values 2D ECHO LVOT Diameter 2.0 cm LV Ejection Fraction MOD 2C 62.9 % LV Ejection Fraction 2C AL 63.0 % LA Diameter 4.1 cm LA Width 3.5 cm LA Height 4.4 cm RA Width 3.1 cm RA Height 4.6 cm Aorta at Sinotubular Diameter 2.6 cm M-MODE Aortic Annulus Diameter 3.1 cm LA Ao Ratio MM 1.3 MV E Point Septal Separation 0.7 cm DOPPLER Right Atrial Pressure 8.0 mmHg FINDINGS Left Ventricle Normal left ventricular size and EF 60 %. Mild hypokinesia of the basal inferior wall segment Right Ventricle Normal RV size and ejection fraction Right Atrium Normal right atrial size. Left Atrium Normal left atrial size. Mitral Valve Mild mitral annular calcification. Aortic Valve Thickened with some restriction of mobility Tricuspid Valve No gross abnormalities noted Pulmonic Valve Pulmonic valve not well visualized. Pericardium No pericardial effusion. Aorta Normal aortic annulus size. IVC Inferior vena cava not visualized. CONCLUSIONS Normal left ventricular size and EF 60 %. Mild hypokinesia of the basal inferior wall segment. Thickened aortic valve with some restriction of mobility. There is no pericardial effusion. There are no intracardiac masses. Normal RV size and ejection fraction. Mild mitral annular calcification. Compared to study from 03/21/2023, there may not be a significant change Dr Young Christensen MD [facility] (Electronically Signed) Final Date: 23 July 2023 20:12 S
== END 2023-07-23 14:30 | disposition home or self-care (01) ==
LOC: RAD 14:30
PROVIDERS: PCP Nurse Practitioner; Visit Provider Internal Medicine Medical Oncology
DX: C15.9 Malignant neoplasm of esophagus, unspecified (principal); R06.02 Shortness of breath
CPT/HCPCS: 93308

== ENCOUNTER 2023-07-24 14:59 | Outpatient (CLI) | payer OTHER, SELFPAY ==
--- NOTE | 2023-07-24 15:30 | CT_ITS ---
WS: [id number] CT CHEST, ABDOMEN, AND PELVIS TECHNIQUE: Contrast-enhanced CT of the chest, abdomen, and pelvis with coronal and sagittal reformatt ed images. CLINICAL INFORMATION: Follow up COMPARISON: CT 04/25/2023 DLP: 802.[address] scans at [facility] use at least one of these dose optimization techniques: automated e xposure control; mA and/or kV adjustment per patient size (includes targeted exams where dose is matc hed to clinical indication); or iterative reconstruction. CT CHEST: Prior esophagectomy and with gastric pull-through. Stable abdominal aortic aneurysm measuring 3.7 x 3.8 cm AP by transverse. Aortic calcification. Moderate to advanced chronic emphysematous changes. Fi brosis in the lung bases. Aortic calcification. Coronary calcification. No mediastinal or hilar lymph adenopathy. No axillary lymphadenopathy. Mild thoracic kyphosis. Chronic compression deformities in t he midthoracic spine unchanged. CT ABDOMEN AND PELVIS: Diffuse fatty filtration of the liver. Incidental hepatic cysts. Normal portal vein and splenic vei n. Normal spleen. Fatty atrophy of the pancreas. Adrenal glands are normal. Normal renal parenchymal enhancement. No hydronephrosis. Exophytic RIGHT renal cysts are stable. Tiny calculi upper pole LEFT kidney unchanged. Urine distended bladder. Sigmoid diverticulosis. Gallbladder is contracted. Postoperative changes RIG HT cecum. No abdominal or pelvic lymphadenopathy. Enlarged prostate measuring 4.8 cm. IMPRESSION: 1. No evidence of metastatic disease in the chest abdomen or pelvis. 2. Incidental hepatic and renal cysts are stable. 3. Prior esophagectomy with gastric pull-through. 4. Stable infrarenal abdominal aortic aneurysm. 5. Enlarged prostate measuring 4.8 cm. Recommend correlation PSA.
[2023-07-24] MEDS: iohexol 350 mg/mL 500 mL Btl (per mL) PO (15:48)
[2023-07-24] MEDS: iohexol 350 mg/mL 500 mL Btl (per mL) IV (16:04)
== END 2023-07-24 15:00 | disposition home or self-care (01) ==
LOC: RAD 15:00
PROVIDERS: PCP Nurse Practitioner; Visit Provider Internal Medicine Medical Oncology
DX: C15.9 Malignant neoplasm of esophagus, unspecified (principal); I71.40 Abdominal aortic aneurysm, without rupture, unspecified; J43.9 Emphysema, unspecified; K76.89 Other specified diseases of liver; K76.0 Fatty (change of) liver, not elsewhere classified; N28.1 Cyst of kidney, acquired; N40.0 Benign prostatic hyperplasia without lower urinary tract symptoms
CPT/HCPCS: 71260; 74177; Q9967

== ENCOUNTER 2023-07-25 08:29 | Oncology outpatient (recurring) (ONCR) | payer OTHER, SELFPAY ==
[2023-07-25 08:40] VITALS: BP 112/68; PULSE 89; RESP 16; TEMP 36.8; O2SAT 90
[2023-07-25 08:52] LABS: Basophils # 0.1 10^3/uL (0.0-0.1); Basophils % 1.1 %; Eosinophils # 0.2 10^3/uL (0.0-0.8); Eosinophils % 2.8 %; Lymphocytes # 1.1 10^3/uL (0.8-4.8); Lymphocytes % 15.4 %; Mean Corpuscular HGB Conc 32.1 g/dL (30-55); Mean Corpuscular Hemoglobin 27.2 pg (27-33); Mean Platelet Volume 8.6 fL (7.4-10.4); Monocytes # 0.7 10^3/uL (0.2-0.9); Monocytes % 10.1 %; Neutrophils # 4.98 10^3/uL (1.8-7.7); Neutrophils % 70.2 %; Nucleated Red Blood Cells % 0 %; Platelet Count 299 10^3/cmm (157-399); Red Blood Count 4.59 10^6/uL (3.85-5.65); Red Cell Distribution Width 15.6 % (12.1-15.1)
[2023-07-25 09:19] LABS: Alanine Aminotransferase 19 U/L (0-41); Alkaline Phosphatase 101 U/L (40-130); Anion Gap 11.2 (5-19); Aspartate Amino Transferase 23 U/L (0-40); Blood Urea Nitrogen 14 mg/dL (8-23); Calcium 9.3 mg/dL (8.5-10.5); Carbon Dioxide 31 mmol/L (22-29); Chloride 104 mmol/L (98-107); Glucose 119 mg/dL (65-115); Osmolality Calculated 296 mOsm/kg (285-295); Potassium 4.2 mmol/L (3.5-5.1); Sodium 142 mmol/L (136-145); Thyroid Stimulating Hormone 0.95 uIU/mL (0.27-4.20); Total Bilirubin 0.7 mg/dL (0.15-1.2)
[2023-07-25] MEDS: diphenhydrAMINE 25 mg Capsule PO (11:27)
[2023-07-25] MEDS: acetaminophen 325 mg Tablet 650 MG PO (11:27)
[2023-07-25] MEDS: sodium chloride 0.9% 250 ML 75 ML IV (11:28)
[2023-07-25 12:59] VITALS: BP 128/68; PULSE 63; RESP 18; TEMP 36.3; O2SAT 96
== END 2023-08-03 23:59 | disposition home or self-care (01) ==
PROVIDERS: PCP Nurse Practitioner; Visit Provider Internal Medicine Medical Oncology
DX: C15.9 Malignant neoplasm of esophagus, unspecified; Z51.11 Encounter for antineoplastic chemotherapy; C78.7 Secondary malignant neoplasm of liver and intrahepatic bile duct; C77.2 Secondary and unspecified malignant neoplasm of intra-abdominal lymph nodes; J44.9 Chronic obstructive pulmonary disease, unspecified; Z87.891 Personal history of nicotine dependence; Z99.81 Dependence on supplemental oxygen; C78.00 Secondary malignant neoplasm of unspecified lung; Z79.899 Other long term (current) drug therapy
CPT/HCPCS: 80053; 84443; 85025; 96365; 96367; 96413; 99215; J1642; J7050; Q5112

== ENCOUNTER 2023-08-22 09:00 | Oncology outpatient (recurring) (ONCR) | payer OTHER, SELFPAY ==
[2023-08-08 08:55] VITALS: BP 103/68; PULSE 90; RESP 20; TEMP 36; O2SAT 97
[2023-08-08 09:00] LABS: Basophils # 0.1 10^3/uL (0.0-0.1); Basophils % 0.8 %; Eosinophils # 0.2 10^3/uL (0.0-0.8); Eosinophils % 2.9 %; Hematocrit 39.3 % (37-53); Lymphocytes # 1.2 10^3/uL (0.8-4.8); Lymphocytes % 14.1 %; Mean Corpuscular HGB Conc 31.8 g/dL (30-55); Mean Corpuscular Hemoglobin 27.2 pg (27-33); Mean Corpuscular Volume 85.4 fl (82-101); Mean Platelet Volume 8.1 fL (7.4-10.4); Monocytes # 0.7 10^3/uL (0.2-0.9); Neutrophils # 6.01 10^3/uL (1.8-7.7); Neutrophils % 72.8 %; Nucleated Red Blood Cells % 0 %; Platelet Count 276 10^3/cmm (157-399); Red Cell Distribution Width 15.6 % (12.1-15.1); White Blood Count 8.25 10^3/uL (3.29-11.43)
[2023-08-08 09:27] LABS: Alanine Aminotransferase 16 U/L (0-41); Albumin Level 4.2 g/dL (3.5-5.2); Alkaline Phosphatase 95 U/L (40-130); Anion Gap 13.3 (5-19); Aspartate Amino Transferase 22 U/L (0-40); Blood Urea Nitrogen 12 mg/dL (8-23); Calcium 9.2 mg/dL (8.5-10.5); Carbon Dioxide 28 mmol/L (22-29); Chloride 104 mmol/L (98-107); Globulin 2.9 g/dL (1.3-4.6); Glucose 140 mg/dL (65-115); Osmolality Calculated 294 mOsm/kg (285-295); Potassium 4.3 mmol/L (3.5-5.1); Sodium 141 mmol/L (136-145); Total Bilirubin 0.7 mg/dL (0.15-1.2); Total Protein 7.1 g/dL (6.6-8.7)
[2023-08-08] MEDS: acetaminophen 325 mg Tablet 650 MG PO (10:38)
[2023-08-08] MEDS: diphenhydrAMINE 25 mg Capsule PO (10:38)
[2023-08-08] MEDS: sodium chloride 0.9% 250 ML 75 ML IV (11:20)
[2023-08-08 12:25] VITALS: BP 106/68; PULSE 103; RESP 16; TEMP 36.5; O2SAT 96
[2023-08-22 09:30] VITALS: BP 102/64; PULSE 60; RESP 16; TEMP 36.9; O2SAT 99
[2023-08-22 09:43] LABS: Basophils # 0.1 10^3/uL (0.0-0.1); Basophils % 1.5 %; Eosinophils # 0.2 10^3/uL (0.0-0.8); Eosinophils % 2.9 %; Hematocrit 39.2 % (37-53); Lymphocytes # 1.1 10^3/uL (0.8-4.8); Lymphocytes % 14.9 %; Mean Corpuscular HGB Conc 31.4 g/dL (30-55); Mean Corpuscular Hemoglobin 26.9 pg (27-33); Mean Corpuscular Volume 85.6 fl (82-101); Mean Platelet Volume 8.4 fL (7.4-10.4); Monocytes # 0.8 10^3/uL (0.2-0.9); Monocytes % 11.1 %; Neutrophils # 5.05 10^3/uL (1.8-7.7); Neutrophils % 69.2 %; Nucleated Red Blood Cells % 0 %; Platelet Count 271 10^3/cmm (157-399); Red Blood Count 4.58 10^6/uL (3.85-5.65); Red Cell Distribution Width 15.3 % (12.1-15.1)
[2023-08-22 10:15] LABS: Alanine Aminotransferase 14 U/L (0-41); Albumin Level 4.2 g/dL (3.5-5.2); Alkaline Phosphatase 95 U/L (40-130); Anion Gap 12.3 (5-19); Aspartate Amino Transferase 21 U/L (0-40); Blood Urea Nitrogen 15 mg/dL (8-23); Calcium 9.6 mg/dL (8.5-10.5); Carbon Dioxide 30 mmol/L (22-29); Chloride 106 mmol/L (98-107); Globulin 2.8 g/dL (1.3-4.6); Glucose 129 mg/dL (65-115); Osmolality Calculated 301 mOsm/kg (285-295); Potassium 4.3 mmol/L (3.5-5.1); Sodium 144 mmol/L (136-145); Thyroid Stimulating Hormone 0.52 uIU/mL (0.27-4.20); Total Bilirubin 0.7 mg/dL (0.15-1.2)
[2023-08-22] MEDS: sodium chloride 0.9% 250 ML 75 ML IV (10:39)
[2023-08-22] MEDS: acetaminophen 325 mg Tablet 650 MG PO (10:45)
[2023-08-22] MEDS: diphenhydrAMINE 25 mg Capsule PO (10:46)
[2023-08-22] MEDS: pembrolizumab 400 MG in sodium chloride 0.9% 250 ML 532 MG IV (11:04)
[2023-08-22 12:39] VITALS: BP 105/67; PULSE 60; RESP 18; TEMP 35.9; O2SAT 98
== END 2023-08-22 23:59 | disposition home or self-care (01) ==
PROVIDERS: PCP Nurse Practitioner; Visit Provider Internal Medicine Medical Oncology
DX: C15.9 Malignant neoplasm of esophagus, unspecified (principal); J44.9 Chronic obstructive pulmonary disease, unspecified; Z87.891 Personal history of nicotine dependence; Z79.899 Other long term (current) drug therapy; Z51.11 Encounter for antineoplastic chemotherapy
CPT/HCPCS: 80053; 84443; 85025; 96413; 96417; 99214; J1642; J7050; J9271; Q5112

== ENCOUNTER → 2023-08-26 12:47 | Outpatient (BNVA) | payer OTHER, SELFPAY | PROVIDERS: PCP Nurse Practitioner; Visit Provider Podiatrist Foot & Ankle Surgery | DX: B35.1 Tinea unguium (principal); G62.9 Polyneuropathy, unspecified; I73.9 Peripheral vascular disease, unspecified; E11.42 Type 2 diabetes mellitus with diabetic polyneuropathy; Z79.84 Long term (current) use of oral hypoglycemic drugs | CPT/HCPCS: 11721; 99203 ==

== ENCOUNTER → 2023-08-28 08:29 | Outpatient (BNVA) | payer OTHER, SELFPAY | PROVIDERS: PCP Nurse Practitioner; Visit Provider Internal Medicine Rheumatology | DX: Z79.899 Other long term (current) drug therapy (principal); M19.90 Unspecified osteoarthritis, unspecified site; C15.9 Malignant neoplasm of esophagus, unspecified; M45.2 Ankylosing spondylitis of cervical region; Z15.89 Genetic susceptibility to other disease | CPT/HCPCS: 99205 ==

== ENCOUNTER 2023-10-03 08:30 | Oncology outpatient (recurring) (ONCR) | payer OTHER, SELFPAY ==
[2023-09-12 08:26] VITALS: BMI 21.5
[2023-09-12 08:27] VITALS: BP 110/69; PULSE 82; RESP 16; TEMP 36.8; O2SAT 98
[2023-09-12 08:42] LABS: Basophils # 0.1 10^3/uL (0.0-0.1); Basophils % 1.3 %; Eosinophils # 0.2 10^3/uL (0.0-0.8); Eosinophils % 3.3 %; Hematocrit 39.4 % (37-53); Lymphocytes % 16.4 %; Mean Corpuscular HGB Conc 31.7 g/dL (30-55); Mean Corpuscular Hemoglobin 27.3 pg (27-33); Mean Platelet Volume 8.2 fL (7.4-10.4); Monocytes # 0.7 10^3/uL (0.2-0.9); Neutrophils # 4.24 10^3/uL (1.8-7.7); Neutrophils % 67.7 %; Nucleated Red Blood Cells % 0 %; Platelet Count 259 10^3/cmm (157-399); Red Blood Count 4.58 10^6/uL (3.85-5.65); Red Cell Distribution Width 15.7 % (12.1-15.1); White Blood Count 6.27 10^3/uL (3.29-11.43)
[2023-09-12 08:59] LABS: Alanine Aminotransferase 16 U/L (0-41); Alkaline Phosphatase 100 U/L (40-130); Anion Gap 13.1 (5-19); Aspartate Amino Transferase 25 U/L (0-40); Blood Urea Nitrogen 13 mg/dL (8-23); Calcium 9.3 mg/dL (8.5-10.5); Carbon Dioxide 29 mmol/L (22-29); Chloride 105 mmol/L (98-107); Globulin 2.8 g/dL (1.3-4.6); Glucose 103 mg/dL (65-115); Osmolality Calculated 296 mOsm/kg (285-295); Potassium 4.1 mmol/L (3.5-5.1); Sodium 143 mmol/L (136-145); Total Bilirubin 0.9 mg/dL (0.15-1.2); Total Protein 6.8 g/dL (6.6-8.7)
[2023-09-12] MEDS: sodium chloride 0.9% 250 ML 75 ML IV (10:11)
[2023-09-12] MEDS: diphenhydrAMINE 25 mg Capsule PO (10:11)
[2023-09-12] MEDS: acetaminophen 325 mg Tablet 650 MG PO (10:11)
[2023-09-12 11:40] VITALS: BP 122/74; PULSE 78; RESP 18; TEMP 36.6; O2SAT 98
[2023-10-03 09:05] VITALS: BP 130/81; PULSE 103; RESP 16; TEMP 36.9; O2SAT 91
[2023-10-03 09:10] LABS: Basophils # 0.1 10^3/uL (0.0-0.1); Basophils % 1.1 %; Eosinophils # 0.2 10^3/uL (0.0-0.8); Eosinophils % 2.7 %; Hematocrit 37.7 % (37-53); Lymphocytes # 0.9 10^3/uL (0.8-4.8); Lymphocytes % 14.1 %; Mean Corpuscular HGB Conc 31.8 g/dL (30-55); Mean Corpuscular Hemoglobin 27.5 pg (27-33); Mean Corpuscular Volume 86.5 fl (82-101); Mean Platelet Volume 8.3 fL (7.4-10.4); Monocytes # 0.7 10^3/uL (0.2-0.9); Monocytes % 10.9 %; Neutrophils # 4.68 10^3/uL (1.8-7.7); Nucleated Red Blood Cells % 0 %; Platelet Count 281 10^3/cmm (157-399); Red Blood Count 4.36 10^6/uL (3.85-5.65); Red Cell Distribution Width 16.6 % (12.1-15.1); White Blood Count 6.59 10^3/uL (3.29-11.43)
[2023-10-03 09:42] LABS: Alanine Aminotransferase 13 U/L (0-41); Albumin Level 3.9 g/dL (3.5-5.2); Alkaline Phosphatase 114 U/L (40-130); Aspartate Amino Transferase 21 U/L (0-40); Blood Urea Nitrogen 16 mg/dL (8-23); Calcium 9.3 mg/dL (8.5-10.5); Carbon Dioxide 28 mmol/L (22-29); Chloride 105 mmol/L (98-107); Free T4 Free Thyroxine 1.06 ng/dL (0.82-1.77); Globulin 2.9 g/dL (1.3-4.6); Glucose 117 mg/dL (65-115); Osmolality Calculated 296 mOsm/kg (285-295); Sodium 142 mmol/L (136-145); T3 Free 3.2 PG/ML (2.0-4.4); Thyroid Stimulating Hormone 0.71 uIU/mL (0.27-4.20); Total Bilirubin 0.7 mg/dL (0.15-1.2); Total Protein 6.8 g/dL (6.6-8.7)
[2023-10-03 09:45] LABS: Anion Gap 12.9 (5-19); Potassium 3.9 mmol/L (3.5-5.1)
[2023-10-03] MEDS: acetaminophen 325 mg Tablet 650 MG PO (11:00)
[2023-10-03] MEDS: diphenhydrAMINE 25 mg Capsule PO (11:00)
[2023-10-03] MEDS: sodium chloride 0.9% 250 ML 75 ML IV (11:02)
[2023-10-03] MEDS: pembrolizumab 400 MG in sodium chloride 0.9% 250 ML 532 MG IV (11:10)
[2023-10-03 12:59] VITALS: BP 115/67; PULSE 78; RESP 18; TEMP 36.4; O2SAT 95
== END 2023-10-03 23:59 | disposition home or self-care (01) ==
PROVIDERS: Internal Medicine Medical Oncology; PCP Nurse Practitioner; Visit Provider Internal Medicine Hematology & Oncology
DX: Z51.11 Encounter for antineoplastic chemotherapy (principal); C15.9 Malignant neoplasm of esophagus, unspecified; C79.9 Secondary malignant neoplasm of unspecified site
CPT/HCPCS: 80053; 84439; 84443; 84481; 85025; 96375; 96413; 96417; 99214; J1642; J7050; J9271; Q5112

== ENCOUNTER 2023-10-18 10:58 | Outpatient (CLI) | payer OTHER, SELFPAY ==
--- NOTE | 2023-10-18 11:00 | USCV_ITS ---
Miguel Boyle Age: 78 Gender: M : 1945 Exam Date: 10/18/2023 11:25 Ordering Phys: Ben Graham MD Technologist: CT [place]am [place] [facility] [place]ication: chemo BP: 100 / 68 HR: 58 Rhythm: Sinus Technical Quality: Adequate MEASUREMENTS (Male / Female) Normal Values 2D ECHO LV Chamber Size 5.2 cm RV Chamber Size 3.5 cm LVOT Diameter 2.2 cm LV Ejection Fraction MOD 2C 48.6 % LV Ejection Fraction 2C AL 47.8 % LA Diameter 4.3 cm LA Width 4.1 cm LA Height 5.2 cm RA Width 3.7 cm RA Height 5.5 cm Aorta at Sinotubular Diameter 2.6 cm M-MODE Aortic Annulus Diameter 3.2 cm LA Ao Ratio MM 1.4 MV E Point Septal Separation 1.1 cm DOPPLER AV Peak Velocity 208.0 cm/s LVOT Peak Velocity 89.0 cm/s AV Area Cont Eq vti 2.0 cm squared AV Area Cont Eq pk 1.6 cm squared MV E' Velocity 9.0 cm/s TR Peak Velocity 144.3 cm/s TR Peak Gradient 8.3 mmHg TV Peak E Velocity 58.0 cm/s Right Atrial Pressure 3.0 mmHg Pulmonary Artery Systolic Pressu 11.3 mmHg PV Peak Velocity 88.0 cm/s FINDINGS Left Ventricle Normal LV size with possibly normal ejection fraction. There is poor delineation of the endocardium. Right Ventricle The right ventricle is normal in size and function. Right Atrium The right atrium is normal in size. Left Atrium Mildly increased left atrial size. Mitral Valve Thickened mitral valve. Moderate mitral annular calcification. Mild mitral valve regurgitation. Aortic Valve Thickened aortic valve. Tricuspid Valve No gross abnormalities noted Pulmonic Valve No gross abnormalities noted Pericardium No pericardial effusion. Aorta Normal ascending aorta dimension. IVC Inferior vena cava not visualized. CONCLUSIONS Normal LV size with possibly normal ejection fraction. There is poor delineation of the endocardium. Mildly increased left atrial size. Thickened mitral valve. Moderate mitral annular calcification. Mild mitral valve regurgitation. There is no pericardial effusion. Consider contrast echocardiogram to better delineate evaluate the LV ejection fraction.(There is a discrepancy between the visual and the MOD estimation) Dr Young Christensen MD [facility] (Electronically Signed) Final Date: 19 October 2023 21:04 S
== END 2023-10-18 10:59 | disposition home or self-care (01) ==
LOC: RAD 10:58
PROVIDERS: PCP Nurse Practitioner; Visit Provider Internal Medicine Hematology & Oncology
DX: C15.9 Malignant neoplasm of esophagus, unspecified (principal); Z79.899 Other long term (current) drug therapy; I34.81 Nonrheumatic mitral (valve) annulus calcification; I34.0 Nonrheumatic mitral (valve) insufficiency
CPT/HCPCS: 93306

== ENCOUNTER 2023-10-31 09:04 | Oncology outpatient (recurring) (ONCR) | payer OTHER, SELFPAY ==
[2023-10-17 09:30] VITALS: BP 114/66; PULSE 94; RESP 16; TEMP 36.8; O2SAT 90
[2023-10-17 09:40] LABS: Basophils # 0.1 10^3/uL (0.0-0.1); Basophils % 0.9 %; Eosinophils # 0.2 10^3/uL (0.0-0.8); Eosinophils % 2.5 %; Hematocrit 38.3 % (37-53); Mean Corpuscular HGB Conc 32.1 g/dL (30-55); Mean Corpuscular Hemoglobin 28.1 pg (27-33); Mean Corpuscular Volume 87.4 fl (82-101); Mean Platelet Volume 8.1 fL (7.4-10.4); Monocytes # 0.7 10^3/uL (0.2-0.9); Monocytes % 8.5 %; Neutrophils # 5.74 10^3/uL (1.8-7.7); Neutrophils % 74.7 %; Nucleated Red Blood Cells % 0 %; Platelet Count 269 10^3/cmm (157-399); Red Blood Count 4.38 10^6/uL (3.85-5.65); Red Cell Distribution Width 17.5 % (12.1-15.1); White Blood Count 7.68 10^3/uL (3.29-11.43)
[2023-10-17 10:08] LABS: Alanine Aminotransferase 16 U/L (0-41); Alkaline Phosphatase 108 U/L (40-130); Anion Gap 10.7 (5-19); Aspartate Amino Transferase 21 U/L (0-40); Blood Urea Nitrogen 21 mg/dL (8-23); Calcium 8.9 mg/dL (8.5-10.5); Carbon Dioxide 29 mmol/L (22-29); Chloride 105 mmol/L (98-107); Globulin 2.7 g/dL (1.3-4.6); Glucose 144 mg/dL (65-115); Osmolality Calculated 298 mOsm/kg (285-295); Potassium 3.7 mmol/L (3.5-5.1); Sodium 141 mmol/L (136-145); Thyroid Stimulating Hormone 0.69 uIU/mL (0.27-4.20); Total Bilirubin 0.9 mg/dL (0.15-1.2); Total Protein 6.7 g/dL (6.6-8.7)
[2023-10-17] MEDS: diphenhydrAMINE 25 mg Capsule PO (10:56)
[2023-10-17] MEDS: acetaminophen 325 mg Tablet 650 MG PO (10:56)
[2023-10-17] MEDS: sodium chloride 0.9% 250 ML 75 ML IV (10:57)
[2023-10-17 13:04] VITALS: BP 121/78; PULSE 78; RESP 18; TEMP 36.6; O2SAT 98
[2023-10-31 09:20] VITALS: BP 90/56; PULSE 98; RESP 18; TEMP 36.5
[2023-10-31 09:34] LABS: Basophils # 0.1 10^3/uL (0.0-0.1); Basophils % 0.6 %; Eosinophils # 0.1 10^3/uL (0.0-0.8); Eosinophils % 0.6 %; Hematocrit 37.7 % (37-53); Lymphocytes % 7.5 %; Mean Corpuscular HGB Conc 32.4 g/dL (30-55); Mean Corpuscular Hemoglobin 27.9 pg (27-33); Mean Corpuscular Volume 86.1 fl (82-101); Monocytes % 7.8 %; Neutrophils # 10.68 10^3/uL (1.8-7.7); Nucleated Red Blood Cells % 0 %; Platelet Count 340 10^3/cmm (157-399); Red Blood Count 4.38 10^6/uL (3.85-5.65); Red Cell Distribution Width 17.1 % (12.1-15.1); White Blood Count 12.86 10^3/uL (3.29-11.43)
[2023-10-31 09:52] LABS: Alanine Aminotransferase 17 U/L (0-41); Alkaline Phosphatase 109 U/L (40-130); Aspartate Amino Transferase 19 U/L (0-40); Blood Urea Nitrogen 27 mg/dL (8-23); Calcium 9.5 mg/dL (8.5-10.5); Carbon Dioxide 28 mmol/L (22-29); Chloride 101 mmol/L (98-107); Globulin 2.9 g/dL (1.3-4.6); Glucose 166 mg/dL (65-115); Osmolality Calculated 299 mOsm/kg (285-295); Sodium 140 mmol/L (136-145); Total Bilirubin 1.2 mg/dL (0.15-1.2); Total Protein 6.9 g/dL (6.6-8.7)
[2023-10-31] MEDS: sodium chloride 0.9% 1,000 ML 600 ML IV (10:46)
== END 2023-11-03 23:59 | disposition home or self-care (01) ==
PROVIDERS: Nurse Practitioner Family; PCP Nurse Practitioner; Visit Provider Internal Medicine Hematology & Oncology
DX: Z51.12 Encounter for antineoplastic immunotherapy; C15.9 Malignant neoplasm of esophagus, unspecified; C79.9 Secondary malignant neoplasm of unspecified site; Z53.9 Procedure and treatment not carried out, unspecified reason; Z79.899 Other long term (current) drug therapy
CPT/HCPCS: 80053; 84443; 85025; 96360; 96361; 96413; 99214; J1642; J7030; J7050; Q5112

== ENCOUNTER 2023-11-14 13:48 | Outpatient (CLI) | payer OTHER, SELFPAY ==
[2023-11-14] MEDS: perflutren protein-a microsphr 0.22 mg/mL SDV 3 mL IV (14:07)
--- NOTE | 2023-11-14 14:15 | USCV_ITS ---
Miguel Boyle Age: 78 Gender: M : 1945 Exam Date: 11/14/2023 14:23 Ordering Phys: Young Christensen MD ([email or web address]) Technologist: ELIAZAR Exam Location: [facility] [place] Indication: EVAL EF. CHEMO PATIENT BP: 98 / 66 HR: 54 Rhythm: Sinus Technical Quality: Adequate MEASUREMENTS (Male / Female) Normal Values 2D ECHO LVOT Diameter 2.0 cm LV Ejection Fraction MOD 2C 37.2 % LV Ejection Fraction 2C AL 35.5 % LA Diameter 4.6 cm LA Width 3.0 cm LA Height 4.8 cm RA Width 3.7 cm RA Height 5.0 cm Aorta at Sinotubular Diameter 2.6 cm M-MODE Aortic Annulus Diameter 2.4 cm LA Ao Ratio MM 2.0 MV E Point Septal Separation 1.0 cm FINDINGS Left Ventricle Diffuse hypokinesia of the left ventricular ejection fraction 44%. (Echo contrast - Optison was used to delineate the endocardium and to estimate the LV ejection fraction) Right Ventricle The right ventricle appears to be slightly dilated with the moderate diffuse hypokinesia Right Atrium Upper limit of normal Left Atrium Upper limit of normal Mitral Valve Thickened mitral valve. Moderate mitral annular calcification. Aortic Valve Thickened aortic valve. Tricuspid Valve No gross abnormalities noted Pulmonic Valve Pulmonic valve not well visualized. Pericardium No pleural effusion. Aorta Normal aortic annulus size. IVC Inferior vena cava not visualized. CONCLUSIONS Diffuse hypokinesia of the left ventricular ejection fraction 44%. (Echo contrast - Optison was used to delineate the endocardium and to estimate the LV ejection fraction). Mildly dilated right ventricle with moderate diffuse hypokinesia. Thickened aortic and mitral valves. Moderate mitral annular calcification . Both atria, upper limit of normal size. No pericardial effusion. Compared to the study from 07/23/2023, LV ejection fraction appears to have decreased. Comparison with the previous study is difficult because of the difference in the technical quality. Dr Young Christensen MD [facility] (Electronically Signed) Final Date: 15 November 2023 20:32 S
== END 2023-11-14 13:49 | disposition home or self-care (01) ==
PROVIDERS: Visit Provider Internal Medicine Cardiovascular Disease
DX: C15.9 Malignant neoplasm of esophagus, unspecified (principal); Z79.899 Other long term (current) drug therapy; I51.7 Cardiomegaly
CPT/HCPCS: C8924; Q9956

== ENCOUNTER 2023-11-21 08:03 | Oncology outpatient (recurring) (ONCR) | payer OTHER, SELFPAY ==
[2023-11-21 08:24] VITALS: BMI 19.3
[2023-11-21 08:37] VITALS: BP 105/65; PULSE 97; RESP 18; TEMP 36.7; O2SAT 97
[2023-11-21 08:49] LABS: Basophils # 0.1 10^3/uL (0.0-0.1); Basophils % 1.3 %; Eosinophils # 0.3 10^3/uL (0.0-0.8); Eosinophils % 4.7 %; Hematocrit 37.9 % (37-53); Lymphocytes # 0.9 10^3/uL (0.8-4.8); Lymphocytes % 13.8 %; Mean Corpuscular HGB Conc 32.2 g/dL (30-55); Mean Corpuscular Hemoglobin 28.4 pg (27-33); Mean Corpuscular Volume 88.1 fl (82-101); Mean Platelet Volume 8.4 fL (7.4-10.4); Monocytes # 0.6 10^3/uL (0.2-0.9); Monocytes % 9.8 %; Neutrophils # 4.36 10^3/uL (1.8-7.7); Neutrophils % 70.2 %; Nucleated Red Blood Cells % 0 %; Platelet Count 238 10^3/cmm (157-399); Red Cell Distribution Width 18.2 % (12.1-15.1); White Blood Count 6.21 10^3/uL (3.29-11.43)
[2023-11-21 09:20] LABS: Alanine Aminotransferase 22 U/L (0-41); Alkaline Phosphatase 104 U/L (40-130); Anion Gap 11.3 (5-19); Aspartate Amino Transferase 26 U/L (0-40); Blood Urea Nitrogen 18 mg/dL (8-23); Calcium 9.4 mg/dL (8.5-10.5); Carbon Dioxide 30 mmol/L (22-29); Chloride 105 mmol/L (98-107); Globulin 2.7 g/dL (1.3-4.6); Glucose 138 mg/dL (65-115); Osmolality Calculated 298 mOsm/kg (285-295); Potassium 4.3 mmol/L (3.5-5.1); Sodium 142 mmol/L (136-145); Thyroid Stimulating Hormone 0.72 uIU/mL (0.27-4.20); Total Protein 6.7 g/dL (6.6-8.7)
[2023-11-21] MEDS: pembrolizumab 400 MG in sodium chloride 0.9% 250 ML 532 MG IV (10:05)
[2023-11-21 10:59] VITALS: BP 124/78; PULSE 74; RESP 20; TEMP 36.6; O2SAT 98
== END 2023-11-21 23:59 | disposition home or self-care (01) ==
PROVIDERS: Nurse Practitioner Family; Visit Provider Internal Medicine Hematology & Oncology
DX: Z51.12 Encounter for antineoplastic immunotherapy (principal); C15.9 Malignant neoplasm of esophagus, unspecified; C79.9 Secondary malignant neoplasm of unspecified site; Z53.9 Procedure and treatment not carried out, unspecified reason; Z79.899 Other long term (current) drug therapy
CPT/HCPCS: 36591; 80053; 84443; 85025; 96365; 99214; A4222; J1642; J7050; J9271

== ENCOUNTER 2023-11-28 06:00 | Outpatient (RCR) | payer OTHER, SELFPAY | END 2023-12-04 23:59 | disposition home or self-care (01) | LOC: WPT 06:00 | PROVIDERS: PCP Nurse Practitioner; Visit Provider Nurse Practitioner | DX: J44.9 Chronic obstructive pulmonary disease, unspecified (principal) | CPT/HCPCS: 97110; 97112; 97161; 97530 ==

== ENCOUNTER 2023-11-29 09:24 | Outpatient (CLI) | payer OTHER, SELFPAY ==
--- NOTE | 2023-11-29 | ECG_ITS ---
[facility] Test Date: 2023-11-29 Pat Name: Miguel Boyle Department: Room: Gender: Male Print Developer: Vesta Carballo : 1945 Requested By: Young Christensen Order Number: [id number] Lili MD: Young Christensen M.D. Interpretive Statements NAME OF STUDY: LEXISCAN SESTAMIBI STRESS TEST INDICATION: Drop in EF, PROCEDURE: At the baseline, the EKG revealed normal sinus rhythm with a normal ST Ts. The baseline heart was 63 bpm with a blood pressue of 128/65 mm of Hg Lexiscan was infused over a period of 20 seconds. A total of 0.4 milligrams of Lexiscan was infused. The stress phase was continued for a total of 5 minutes. Heart rate at the end of the stress phase was 88 bpm with a blood pressure 85/57 mm of Hg. The EKG at the peak infusion revealed no significant changes. Sestamibi was injected 20 seconds after the Lexiscan infusion. Heart rate at the end of the recovery phase was 88 bpm with a blood pressure of 103/58 mm of Hg. patient was complaining of lightheadedness with the peak infusion, possibly from the hypotension. Symptoms resolved during the recovery phase CONCLUSION: 1. No significant EKG changes with the LexiScan infusion 2. No LexiScan induced chest pain or cardiac arrhythmia. Lexiscan induced hypotension, resolved appropriately during the recovery phase 3. Normal heart rate response to Lexiscan infusion 4. Sestamibi/sestamibi perfusion scan pending; see separate report. Electronically Signed On 12-01-2023 21:15:23 EMPLOYMENT SUPERVISOR by Young Christensen M.D. [email or web address]
[2023-11-29 09:40] VITALS: BMI 21.7
--- NOTE | 2023-11-29 09:41 | NMCV_ITS ---
NM refugio perf SPECT r/s* [id number] Miguel Boyle Age: 78 Gender: M : 1945 Exam Date: 11/29/2023 10:31 Ordering Phys: Young Christensen MD ([email or web address]) Technologist: BROOKLYNN Lazo Exam Location: [facility] Indications: ABNORMAL FINDINGS DIAGNOSTIC IMAGING OF THE HEART STRESS TEST Please see separate stress test report in [facility]any for full findings IMAGE PROTOCOL Rest/Stress 1 Lexiscan Day Radiopharmaceutical Dose (mCi) Administration Site Administered by Rest: Tc-99m 10.9 IV BROOKLYNN Lazo Sestamibi Stress:Tc-99m 32.4 IV BROOKLYNN Emery Sestamibi Rest: 29-Nov-2023 60 Discovery 630 Stress: 29-Nov-2023 30 Discovery 630 0.4mg Lexiscan. Supine position only as patient was unable to lay prone. SPECT RESULTS Technical Quality: Excellent Raw Data Analysis: Normal Image Corrections: No attenuation or motion correction applied Summed Stress Score: 13 Summed Rest Score: 9 Summed Difference Score: 4 PERFUSION FINDINGS Moderate to large area of moderately decreased tracer uptake was noted involving the basal and mid anterolateral, basal, mid and apical inferior and apical lateral segments. Subtle areas of reversibility were noted in the apical, anterolateral and basal inferior regions. FUNCTIONAL RESULTS (calculated via Gated SPECT) Stress Image LV EF (%): 63 Stress EDV (mL):72 TID: 0.84 Stress ESV (mL):27 FUNCTIONAL FINDINGS: Segmental wall motion analysis revealing no gross wall motion abnormalities IMPRESSIONS 1. Myocardial perfusion imaging revealing moderate to large area of persistent decreased tracer uptake involving the inferior, inferolateral, anterolateral and apical regions with some very small areas of reversible defects in the inferior, apical and anterolateral regions. 2. Normal LV ejection fraction 63%. 3. LV wall motion analysis revealing no gross wall motion abnormalities. 4. Normal LV volume No similar previous studies are available for comparison Dr Young Christensen MD FACC (Electronically Signed) Final Date: 29 November 2023 12:35 S
[2023-11-29] MEDS: regadenoson 0.4 Mg/5 ml Syringe IVP (11:05)
[2023-11-29 11:20] VITALS: BP 103/58; PULSE 87
== END 2023-11-29 09:25 | disposition home or self-care (01) ==
LOC: CDL 09:24
PROVIDERS: PCP Nurse Practitioner; Visit Provider Internal Medicine Cardiovascular Disease
DX: R94.39 Abnormal result of other cardiovascular function study (principal)
CPT/HCPCS: 36415; 78452; 93017; 96374; A9500; J2785

== ENCOUNTER → 2023-12-04 14:34 | Outpatient (BNVA) | payer OTHER, SELFPAY | PROVIDERS: PCP Nurse Practitioner; Visit Provider Internal Medicine Rheumatology | DX: C15.9 Malignant neoplasm of esophagus, unspecified (principal); M45.2 Ankylosing spondylitis of cervical region; Z15.89 Genetic susceptibility to other disease; Z79.899 Other long term (current) drug therapy | CPT/HCPCS: 99214 ==

== ENCOUNTER 2023-12-05 06:00 | Outpatient (RCR) | payer OTHER, SELFPAY | END 2024-01-02 23:59 | disposition home or self-care (01) | LOC: WPT 06:00 | PROVIDERS: PCP Nurse Practitioner; Visit Provider Nurse Practitioner | DX: J44.9 Chronic obstructive pulmonary disease, unspecified (principal) | CPT/HCPCS: 97110; 97112; 97530 ==

== ENCOUNTER → 2023-12-09 13:25 | Outpatient (BNVA) | payer OTHER, SELFPAY | PROVIDERS: PCP Nurse Practitioner; Visit Provider Podiatrist Foot & Ankle Surgery | DX: B35.1 Tinea unguium (principal); G62.9 Polyneuropathy, unspecified; I73.9 Peripheral vascular disease, unspecified; E11.42 Type 2 diabetes mellitus with diabetic polyneuropathy; Z79.84 Long term (current) use of oral hypoglycemic drugs | CPT/HCPCS: 11721 ==

== ENCOUNTER 2024-01-02 08:34 | Oncology outpatient (recurring) (ONCR) | payer OTHER, SELFPAY ==
[2024-01-02 09:06] LABS: Basophils # 0.1 10^3/uL (0.0-0.1); Eosinophils # 0.1 10^3/uL (0.0-0.8); Eosinophils % 1.9 %; Hematocrit 39.1 % (37-53); Lymphocytes # 0.9 10^3/uL (0.8-4.8); Mean Corpuscular HGB Conc 31.7 g/dL (30-55); Mean Corpuscular Hemoglobin 28.6 pg (27-33); Mean Corpuscular Volume 90.3 fl (82-101); Mean Platelet Volume 8.3 fL (7.4-10.4); Monocytes # 0.6 10^3/uL (0.2-0.9); Monocytes % 8.5 %; Neutrophils # 5.47 10^3/uL (1.8-7.7); Neutrophils % 76.2 %; Nucleated Red Blood Cells % 0 %; Platelet Count 246 10^3/cmm (157-399); Red Blood Count 4.33 10^6/uL (3.85-5.65); Red Cell Distribution Width 17.8 % (12.1-15.1); White Blood Count 7.18 10^3/uL (3.29-11.43)
[2024-01-02 09:39] LABS: Alanine Aminotransferase 31 U/L (0-41); Albumin Level 3.7 g/dL (3.5-5.2); Alkaline Phosphatase 90 U/L (40-130); Aspartate Amino Transferase 27 U/L (0-40); Blood Urea Nitrogen 13 mg/dL (8-23); Calcium 8.9 mg/dL (8.5-10.5); Carbon Dioxide 30 mmol/L (22-29); Chloride 104 mmol/L (98-107); Globulin 2.8 g/dL (1.3-4.6); Glucose 112 mg/dL (65-115); Osmolality Calculated 297 mOsm/kg (285-295); Sodium 143 mmol/L (136-145); Thyroid Stimulating Hormone 1.29 uIU/mL (0.27-4.20); Total Bilirubin 0.7 mg/dL (0.15-1.2); Total Protein 6.5 g/dL (6.6-8.7)
[2024-01-02] MEDS: pembrolizumab 400 MG in sodium chloride 0.9% 250 ML 532 MG IV (10:27)
== END 2024-01-02 23:59 | disposition home or self-care (01) ==
PROVIDERS: Internal Medicine Medical Oncology; PCP Nurse Practitioner; Visit Provider Internal Medicine Hematology & Oncology
DX: Z51.12 Encounter for antineoplastic immunotherapy (principal); Z79.899 Other long term (current) drug therapy; C16.0 Malignant neoplasm of cardia; C77.2 Secondary and unspecified malignant neoplasm of intra-abdominal lymph nodes; Z87.891 Personal history of nicotine dependence; Z53.9 Procedure and treatment not carried out, unspecified reason
CPT/HCPCS: 80053; 84443; 85025; 96413; 99214; A4222; J1642; J7050; J9271

== ENCOUNTER 2024-01-03 06:00 | Outpatient (RCR) | payer OTHER, SELFPAY | END 2024-02-02 23:59 | disposition home or self-care (01) | LOC: WPT 06:00 | PROVIDERS: PCP Nurse Practitioner; Visit Provider Nurse Practitioner | DX: J44.9 Chronic obstructive pulmonary disease, unspecified (principal) | CPT/HCPCS: 97110; 97112; 97530 ==

== ENCOUNTER → 2024-01-08 13:58 | Outpatient (BNVA) | payer OTHER, SELFPAY | PROVIDERS: PCP Nurse Practitioner; Visit Provider Internal Medicine Cardiovascular Disease | DX: I42.8 Other cardiomyopathies (principal); R00.2 Palpitations; K22.2 Esophageal obstruction; R06.02 Shortness of breath; E11.9 Type 2 diabetes mellitus without complications; Z85.01 Personal history of malignant neoplasm of esophagus; Z87.891 Personal history of nicotine dependence; Z79.84 Long term (current) use of oral hypoglycemic drugs; I49.1 Atrial premature depolarization; I49.3 Ventricular premature depolarization | CPT/HCPCS: 36415; 80048; 83880; 93246; 99204 ==

== ENCOUNTER 2024-02-07 15:04 | Emergency (ER) | payer OTHER, SELFPAY ==
[2024-02-07 15:07] VITALS: BP 93/57; PULSE 133; RESP 19; TEMP 36.7; O2SAT 88; BMI 20.7
--- NOTE | 2024-02-07 15:15 | ECG_ITS ---
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 Measurements Intervals [place] Rate: 105 P: 50 MO: 185 QRS: 58 QRSD: 85 T: 56 QT: 321 QTc: 425 Interpretive Statements SINUS TACHYCARDIA POSSIBLE LEFT ATRIAL ENLARGEMENT [-0.1mV P-WAVE IN V1/V2] ABNORMAL RHYTHM ECG Compared to ECG 03/21/2023 18:27:48 No significant changes Electronically Signed On 02-07-2024 17:11:30 CDT by Young Christensen M.D. [email or web address].[facility] [email or web address] Media[id number]
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
--- NOTE | 2024-02-07 15:17 | XRR_ITS ---
PROCEDURE INFORMATION: Exam: XR Chest Exam date and time: 02/07/2024 4:29 PM Age: 78 years old Clinical indication: Patient HX: C/O fever, short of breath; HX of esophagus cancer in remission; HX of copd; Weakness; Additional info: Shortness of breath TECHNIQUE: Imaging protocol: Radiologic exam of the chest. Views: 1 view. COMPARISON: CT chest abdpel [id number]/*[id number] 07/24/2023 3:55 PM FINDINGS: Tubes, catheters and devices: A right-sided VAD is in good position with the catheter tip in the lower SVC. Lungs: Both lungs demonstrate severe interstitial fibrosis. No mass or infiltrate. Pleural spaces: Unremarkable. No pleural effusion. No pneumothorax. Heart/Mediastinum: Unremarkable. No cardiomegaly. Bones/joints: Unremarkable. Soft tissues: There is a rounded area of soft tissue in the right lower mediastinum and this is felt to represent a gastric pouch. XR/XR chest 1V [id number] IMPRESSION: 1. No acute findings. 2. Severe interstitial fibrosis involving both lungs
[2024-02-07 15:29] LABS: ABG PCO2 35.7 mmHg (35-45); Alveolar-Arterial Oxygen Gradi 3.5 mmHg (5-10); Arterial Blood Gas Hematocrit 38.8 % (42-52); Base Excess ABG 4.6 mmol/L (-2.0-2.0); Blood Gas Allen Test Pos; Blood Gas Operator Identificat WALCI; Blood Gas Sample Site Radial, right; Blood Gas Sample Type Arterial; Carboxyhemoglobin < 0.0 %THgb (0.4-20.1); HCO3 ABG 27.8 mmol/L (22-26); HGB O2 Sat 94.5 % (95-100); Ionized Calcium Level - ABG 1.2 mmol/L (1.1-1.4); Methemoglobin 0.6 % (0.4-1.5); Oxygen Device NC; Oxygen Saturation ABG 94.8; PO2 ABG 78.4 mmHg (80.0-100.0); Potassium Level - ABG 3.4 mmol/L (3.5-5.0); Total Hemoglobin 12.7 g/dL (14-18)
--- NOTE | 2024-02-07 15:34 | PC.PHAR ---
PT IS [facility] FOR MED LIST 3:30PM 02/07/24
[2024-02-07 15:55] LABS: Basophils % 0.5 %; Eosinophils # 0.1 10^3/uL (0.0-0.8); Eosinophils % 1.5 %; Hematocrit 37.6 % (37-53); Lymphocytes # 0.3 10^3/uL (0.8-4.8); Lymphocytes % 4.9 %; Mean Corpuscular HGB Conc 32.4 g/dL (30-55); Mean Corpuscular Hemoglobin 28.7 pg (27-33); Mean Corpuscular Volume 88.5 fl (82-101); Mean Platelet Volume 8.4 fL (7.4-10.4); Monocytes # 0.6 10^3/uL (0.2-0.9); Monocytes % 9.7 %; Neutrophils % 83.1 %; Nucleated Red Blood Cells % 0 %; Platelet Count 331 10^3/cmm (157-399); Red Blood Count 4.25 10^6/uL (3.85-5.65); Red Cell Distribution Width 15.9 % (12.1-15.1)
[2024-02-07] MEDS: sodium chloride 0.9% 1,000 ML 999 ML IV (15:57)
[2024-02-07] MEDS: sodium chloride 0.9% 500 ML 999 ML IV (15:58)
[2024-02-07 16:03] LABS: Ketone (Acetest) Serum Negative (Negative)
[2024-02-07 16:06] LABS: Influenza A by IFA negative (Negative); Influenza B by IFA negative (Negative)
[2024-02-07 16:11] LABS: Troponin(5th) Baseline 17 ng/L (0-15)
[2024-02-07 16:13] LABS: Alanine Aminotransferase 20 U/L (0-41); Albumin Level 3.3 g/dL (3.5-5.2); Alkaline Phosphatase 87 U/L (40-130); Anion Gap 15.6 (5-19); Aspartate Amino Transferase 25 U/L (0-40); Blood Urea Nitrogen 16 mg/dL (8-23); C Reactive Protein 74.8 mg/L (0.0-4.9); Calcium 8.7 mg/dL (8.5-10.5); Carbon Dioxide 26 mmol/L (22-29); Chloride 99 mmol/L (98-107); Creatinine Clr Calc Pharmacy 87.2569; Globulin 3.2 g/dL (1.3-4.6); Glucose 178 mg/dL (65-115); Osmolality Calculated 290 mOsm/kg (285-295); Potassium 3.6 mmol/L (3.5-5.1); Sodium 137 mmol/L (136-145); Total Bilirubin 0.8 mg/dL (0.15-1.2); Total Protein 6.5 g/dL (6.6-8.7)
[2024-02-07 16:43] LABS: Bilirubin Urine Neg (Negative); Blood Urine Neg (Negative); Glucose Urine UA Norm (Normal); Ketones Urine Negative (Negative); Leukocyte Esterase Urine Negative (Negative); Nitrate Urine Negative (Negative); Protein Urine Neg (Negative); Specific Gravity, Urine 1.015 (1.005-1.030); Urine Appearance Clear (CLEAR); Urine Color Yellow (Yellow); Urobilinogen Urine Neg (Negative); pH Urine 8 (5-7)
[2024-02-07 16:44] LABS: RBC Urine RARE /hpf (0-2); WBC Urine RARE /hpf (0-5)
[2024-02-07 16:45] LABS: Add Urine Culture? No; Amorphous Sediment Urine 2+ /hpf; Bacteria Urine TRACE /hpf; Mucus Urine TRACE /hpf; Squamous Epithelial Cell Urine RARE /hpf (0-5)
[2024-02-07 17:24] VITALS: PULSE 65; RESP 17; O2SAT 97
[2024-02-07 17:36] LABS: Adenovirus Not Detected (NOT DETECT); Chlamydia Pneumoniae Not Detected (NOT DETECT); Coronavirus 229E,HKU1,NL63,OC4 Not Detected (NOT DETECT); Human Metapneumovirus Not Detected (NOT DETECT); Human Rhinovirus/Enterovirus Not Detected (NOT DETECT); Influenza A Not Detected (NOT DETECT); Influenza A H1 Not Detected (NOT DETECT); Influenza A H1-2009 Not Detected (NOT DETECT); Influenza A H3 Not Detected (NOT DETECT); Influenza B Not Detected (NOT DETECT); Mycoplasma Pneumoniae Not Detected (NOT DETECT); Parainfluenza Virus Type 1 Not Detected (NOT DETECT); Parainfluenza Virus Type 2 Not Detected (NOT DETECT); Parainfluenza Virus Type 3 Not Detected (NOT DETECT); Parainfluenza Virus Type 4 Not Detected (NOT DETECT); Respiratory Syncytial Virus A Not Detected (NOT DETECT); Respiratory Syncytial Virus B Not Detected (NOT DETECT); SARS-COV-2 Not Detected (NOT DETECT)
--- NOTE | 2024-02-07 18:09 | CTR_ITS ---
PROCEDURE INFORMATION: Exam: CT Chest Without Contrast; Diagnostic Exam date and time: 02/07/2024 6:18 PM Age: 78 years old Clinical indication: Fever and shortness of breath; Prior surgery; Surgery date: 6+ months; Surgery type: Esophagectomy. Chest port; Patient HX: Fever with SOB. History of metastatic esophageal cancer. ; Additional info: Abnormal chest x-ray TECHNIQUE: Imaging protocol: Diagnostic computed tomography of the chest without contrast. Radiation optimization: All CT scans at this facility use at least one of these dose optimization techniques: automated exposure control; mA and/or kV adjustment per patient size (includes targeted exams where dose is matched to clinical indication); or iterative reconstruction. COMPARISON: CT chest abdpel w/*[id number] 07/24/2023 3:55 PM RADIATION DOSE METRICS: Total DLP (mGy-cm): 411.59 FINDINGS: Lungs: Severe emphysematous changes. 15 mm spiculated subpleural nodule in the anterior left subpleural upper lobe, increased compared to 07/24/2023. Suggested increased interstitial and ground-glass opacification in the inferior upper lobes. Pleural spaces: No pleural effusion or pneumothorax. Heart: Heart size is within normal limits. There is no pericardial effusion or pericardial thickening. Coronary arteries: Severe coronary artery calcification. Lymph nodes: Prominent left paratracheal lymph nodes, stable compared to prior imaging. No enlarged mediastinal or axillary lymph nodes. The molly are suboptimally evaluated due to lack of intravenous contrast. Vasculature: Atherosclerotic calcifications are present. No aneurysm is identified. Stomach and bowel: Stable postoperative changes related to gastric pull up. Bones/joints: Unremarkable. No acute fracture. Soft tissues: Unremarkable. CT/CT chest [facility] [id number] IMPRESSION: 1. 15 mm spiculated subpleural nodule in the anterior left subpleural upper lobe, increased compared to 07/24/2023. Differential diagnosis includes infectious/inflammatory disease as well as primary or metastatic nodule. Recommend short interval follow-up based on clinical status of the patient. 2. Suggested increased interstitial and ground-glass opacification in the inferior upper lobes. Correlate with edema or superimposed atypical infection. Worsening left basilar atelectasis. COMMENTS: The presence of pulmonary emphysema on CT is an independent risk factor for lung cancer. In the absence of a history or active diagnosis of lung cancer, it is recommended that this patient with emphysema be evaluated for enrollment in a low dose CT lung cancer screening program.
[2024-02-07 18:26] VITALS: PULSE 71; RESP 16; O2SAT 98
[2024-02-07 18:36] LABS: Troponin 5 2HR 14.09 ng/L (0-15)
[2024-02-07 18:38] LABS: Troponin 5 2HR Delta -2.91 ABS# (0-10)
[2024-02-07 19:17] LABS: Lactic Sepsis W/Reflex 0.9 mmol/L (0.5-2.2)
[2024-02-07] MEDS: levofloxacin-dextrose 5 % 750 MG/150 ML PREMIX 100 MG IV (19:47)
[2024-02-07 19:51] VITALS: PULSE 62; RESP 18; O2SAT 92
[2024-02-07 21:01] VITALS: BP 91/47; PULSE 47; RESP 13
== END 2024-02-07 21:19 | disposition home or self-care (01) ==
PROVIDERS: Emergency Provider Emergency Medicine; PCP Nurse Practitioner
DX: J44.0 Chronic obstructive pulmonary disease with (acute) lower respiratory infection (principal); J18.9 Pneumonia, unspecified organism; J96.11 Chronic respiratory failure with hypoxia; R91.1 Solitary pulmonary nodule; Z79.84 Long term (current) use of oral hypoglycemic drugs; Z11.52 Encounter for screening for COVID-19; Z87.891 Personal history of nicotine dependence; Z85.01 Personal history of malignant neoplasm of esophagus; E11.9 Type 2 diabetes mellitus without complications
CPT/HCPCS: 36415; 36600; 71045; 71250; 80051; 80053; 81001; 82009; 82330; 82805; 83605; 84145; 84484; 85025; 86140; 87040; 87635; 87804; 93005; 96361; 96365; 96366; 99285; J1956; J7030; J7040

== ENCOUNTER 2024-02-13 10:00 | Inpatient (IN) | payer OTHER, SELFPAY ==
[2024-02-13] VITALS (9 sets, daily range): BP systolic 98–114; BP diastolic 61–69; PULSE 54–110; RESP 14–26; TEMP 36.4–36.8; O2SAT 93–98; BMI 20.5
--- NOTE | 2024-02-13 10:04 | ECG_ITS ---
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 Measurements Intervals [place] Rate: 116 P: 34 ND: 147 QRS: 54 QRSD: 82 T: -4 QT: 322 QTc: 449 Interpretive Statements SINUS TACHYCARDIA WITH OCCASIONAL VENTRICULAR PREMATURE COMPLEXES ST DEVIATION AND MODERATE T-WAVE ABNORMALITY, CONSIDER ANTERIOR ISCHEMIA [-0.1+ mV T-WAVE IN V3/V4] Compared to ECG 02/07/2024 15:15:42 Ventricular premature complex(es) now present T-wave abnormality now present Possible ischemia now present Electronically Signed On 02-14-2024 17:03:46 CDT by Riki Michel M.D. [id number] f
--- NOTE | 2024-02-13 10:05 | XRR_ITS ---
PROCEDURE INFORMATION: Exam: XR Chest Exam date and time: 02/13/2024 10:19 AM Age: 78 years old Clinical indication: Shortness of breath; Prior surgery; Surgery date: 6+ months; Surgery type: Port; Additional info: SOB TECHNIQUE: Imaging protocol: Radiologic exam of the chest. Views: 1 view. COMPARISON: CT chest con [id number] 02/07/2024 6:18 PM FINDINGS: Lungs: Unremarkable. No consolidation. Pleural spaces: Unremarkable. No pleural effusion. No pneumothorax. Heart/Mediastinum: Unremarkable. No cardiomegaly. Bones/joints: Unremarkable. Esophagectomy with gastric pull-through. Infusion port enters from the right and terminates in the SVC. Moderate interstitial fibrosis bilaterally. XR/XR chest 1V portable [id number] IMPRESSION: No acute cardiopulmonary disease.
[2024-02-13 10:15] LABS: ABG PCO2 36.3 mmHg (35-45); ABG PH Result 7.47 (7.35-7.45); Arterial Blood Gas Hematocrit 39.1 % (42-52); Blood Gas Allen Test Pos; Blood Gas Operator Identificat WALCI; Blood Gas Sample Site Radial, right; Blood Gas Sample Type Arterial; Carboxyhemoglobin 0.1 %THgb (0.4-20.1); HCO3 ABG 26.6 mmol/L (22-26); Methemoglobin 0.3 % (0.4-1.5); Oxygen Device NC; PO2 ABG 58.3 mmHg (80.0-100.0); Total Hemoglobin 12.8 g/dL (14-18)
[2024-02-13 10:16] LABS: Basophils % 0.4 %; Eosinophils # 0.1 10^3/uL (0.0-0.8); Eosinophils % 0.9 %; Hematocrit 41.9 % (37-53); Lymphocytes # 0.6 10^3/uL (0.8-4.8); Mean Corpuscular HGB Conc 31.7 g/dL (30-55); Mean Corpuscular Hemoglobin 28.1 pg (27-33); Mean Corpuscular Volume 88.4 fl (82-101); Mean Platelet Volume 8.3 fL (7.4-10.4); Monocytes # 0.8 10^3/uL (0.2-0.9); Monocytes % 8.2 %; Neutrophils # 7.68 10^3/uL (1.8-7.7); Nucleated Red Blood Cells % 0 %; Platelet Count 380 10^3/cmm (157-399); Red Blood Count 4.74 10^6/uL (3.85-5.65); Red Cell Distribution Width 15.9 % (12.1-15.1); White Blood Count 9.15 10^3/uL (3.29-11.43)
--- NOTE | 2024-02-13 10:20 | PC.NURSE ---
Medication Delay: abx ordered @1009, delayed d/t waiting on blood cultures to be drawn.
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
[2024-02-13 10:29] LABS: INR 1.05 (0.8-1.2)
[2024-02-13 10:41] LABS: Alanine Aminotransferase 23 U/L (0-41); Albumin Level 3.7 g/dL (3.5-5.2); Alkaline Phosphatase 93 U/L (40-130); Aspartate Amino Transferase 28 U/L (0-40); Blood Urea Nitrogen 24 mg/dL (8-23); Carbon Dioxide 27 mmol/L (22-29); Chloride 100 mmol/L (98-107); Creatinine Clr Calc Pharmacy 87.0556; Globulin 3.7 g/dL (1.3-4.6); Glucose 122 mg/dL (65-115); NT Pro B Type Natriuretic Pept 1724 pg/mL (0-450); Osmolality Calculated 295 mOsm/kg (285-295); Sodium 140 mmol/L (136-145); Total Protein 7.4 g/dL (6.6-8.7)
[2024-02-13] MEDS: methylPREDNISolone sod succ 125 mg/2 mL INJ IVP (10:44)
[2024-02-13] MEDS: cefTRIAXone 1,000 MG in sodium chloride 0.9% (plus) 50 ML 100 MG IV (10:46)
--- NOTE | 2024-02-13 11:15 | CT_ITS ---
WS: [id number] CT CHEST ANGIOGRAPHY WITH REFORMATS HISTORY: pe TECHNIQUE: Contiguous axial images are obtained through the chest during arterial injection of intrav enous contrast. Images are reconstructed to evaluate the pulmonary arteries. MIP imaging also reviewe d. All CT scans at [facility] use at least one of these dose optimization techniques: automat ed exposure control; mA and/or kV adjustment per patient size (includes targeted exams where dose is matched to clinical indication); or iterative reconstruction. CONTRAST: Omnipaque 350; 65 mL IV. DLP: 378.01 mGy.cm COMPARISON: 02/07/2024, 07/24/2023 Good opacification of the proximal and central pulmonary arteries. No pulmonary embolism is identifie d. Pulmonary artery size is normal. Moderate atherosclerosis thoracic aorta. No aneurysm. Patient is status post esophagectomy with gastric pull-through. There is high density material within the gastric pull-through which is probably related to medicinal ingestion. No oral contrast was give n for this exam. Interval change in the lung interstitium since 02/07/2024. New mild to moderate interstitial thickening bilaterally superimposed on centrilobular emphysema. Due to the interval change this is probably rel ated to pulmonary edema and fluid overload. Reidentified is a subpleural spiculated nodule in the ant erior LEFT upper lobe measuring 12 x 4 mm. No additional mass identified. No effusions. Nonobstructing calcifications upper pole LEFT kidney. Suprarenal aortic calcifications. No adrenal ma ss. Reidentified is a lobulated hepatic cyst in the superior RIGHT lobe of the liver. There are a few mild compression fractures in the midthoracic spine which are unchanged. IMPRESSION: 1. No pulmonary embolism. 2. Interval development of mild to moderate interstitial thickening throughout both lungs since 2023. Due to the interval change consider overlying pulmonary edema superimposed on advanced centrilo bular and paraseptal emphysema. 3. Reidentified is a spiculated subpleural nodule in the LEFT upper lobe which will need to be reeva luated in [address] 4. Status post esophagectomy with gastric pull-through. 5. No adenopathy.
[2024-02-13] MEDS: azithromycin 500 MG in sodium chloride 0.9% 250 ML 250 MG IV (11:18)
[2024-02-13] MEDS: iohexol 350 mg/mL 500 mL Btl (per mL) IV (12:25)
[2024-02-13] MEDS: sodium chloride 0.9% 1,000 ML 999 ML IV (12:42)
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
--- NOTE | 2024-02-13 15:31 | USCV_ITS ---
LV Miguel Boyle Age: 78 Gender: M : 1945 Exam Date: 02/13/2024 15:46 Ordering Phys: Cody Whitaker MD Technologist: [place] [facility] [place]: for ef BP: 134 / 78 HR: Rhythm: Sinus Technical Quality: Adequate MEASUREMENTS (Male / Female) Normal Values 2D ECHO LV Diastolic Diameter PLAX 4.5 cm 4.2 - 5.9 / 3.9 - 5.3 cm IVS Diastolic Thickness 1.2 cm 0.6 - 1.0 / 0.6 - 0.9 cm IVS Systolic Thickness 1.4 cm LVPW Diastolic Thickness 1.4 cm 0.6 - 1.0 / 0.6 - 0.9 cm LVPW Systolic Thickness 1.7 cm LVOT Diameter 2.5 cm LV Ejection Fraction 2D Teich 49.4 % LV Ejection Fraction MOD 2C 57.6 % LV Ejection Fraction 2C AL 59.5 % LA Diameter 3.2 cm RA Systolic Volume 4C AL 45.6 ml RA Systolic Volume 4C MOD 43.8 ml LA Sys Volume AL 47.2 cm cubed LA Sys Volume Index AL 24.4 cm cubed/m squared Aorta at Sinotubular Diameter 2.8 cm M-MODE LA Ao Ratio MM 1.2 AV Cusp Separation MM 1.4 cm FINDINGS Left Ventricle Right Ventricle Right Atrium Left Atrium Mitral Valve Aortic Valve Tricuspid Valve Pulmonic Valve Pericardium Aorta IVC CONCLUSIONS This is a limited echocardiogram performed to assess LV systolic function LV systolic function is normal with EF of 55-60%. No regional wall motion abnormalities. Riki Michel MD (Electronically Signed) Final Date: 13 February 2024 17:00 S
[2024-02-13 15:55] LABS: Adenovirus Not Detected (NOT DETECT); Chlamydia Pneumoniae Not Detected (NOT DETECT); Coronavirus 229E,HKU1,NL63,OC4 Not Detected (NOT DETECT); Human Metapneumovirus Not Detected (NOT DETECT); Human Rhinovirus/Enterovirus Not Detected (NOT DETECT); Influenza A Not Detected (NOT DETECT); Influenza A H1 Not Detected (NOT DETECT); Influenza A H1-2009 Not Detected (NOT DETECT); Influenza A H3 Not Detected (NOT DETECT); Influenza B Not Detected (NOT DETECT); Mycoplasma Pneumoniae Not Detected (NOT DETECT); Parainfluenza Virus Type 1 Not Detected (NOT DETECT); Parainfluenza Virus Type 2 Not Detected (NOT DETECT); Parainfluenza Virus Type 3 Not Detected (NOT DETECT); Parainfluenza Virus Type 4 Not Detected (NOT DETECT); Respiratory Syncytial Virus A Not Detected (NOT DETECT); Respiratory Syncytial Virus B Not Detected (NOT DETECT); SARS-COV-2 Not Detected (NOT DETECT)
[2024-02-13] MEDS: FUROsemide 10 mg/mL SDV 2mL 20 MG IVP (16:19)
[2024-02-13] MEDS: enoxaparin 40 mg/0.4 mL Syringe SUBCUT (16:25)
[2024-02-13] MEDS: piperacillin-tazobactam 3.375 GM in sodium chloride 0.9% (plus) 50 ML IV ×2 (16:26→23:58)
[2024-02-13 16:55] LABS: Glucose Point of Care 204 mg/dL (70-110)
[2024-02-13] MEDS: famotidine 20 mg Tablet PO (17:13)
[2024-02-13] MEDS: insulin lispro 100 unit/1 mL SUBCUT ×2 (17:13→21:25)
[2024-02-13] MEDS: atorvastatin 40 mg Tablet PO (17:13)
[2024-02-13] MEDS: doxycycline 100 mg Tablet PO (17:13)
[2024-02-13 17:32] LABS: Bilirubin Urine Neg (Negative); Blood Urine Neg (Negative); Glucose Urine UA Norm (Normal); Ketones Urine Negative (Negative); Leukocyte Esterase Urine Negative (Negative); Nitrate Urine Negative (Negative); Protein Urine Neg (Negative); Urine Appearance Clear (CLEAR); Urine Color Yellow (Yellow); Urobilinogen Urine Norm (Negative); pH Urine 7 (5-7)
[2024-02-13 17:33] LABS: Add Urine Culture? No
[2024-02-13] MEDS: ipratropium-albuterol 3 mL Neb INHALATION (20:12)
[2024-02-13] MEDS: budesonide 0.5 mg/2 mL Neb INHALATION (20:12)
[2024-02-13 20:54] LABS: Glucose Point of Care 259 mg/dL (70-110)
[2024-02-14] VITALS (14 sets, daily range): BP systolic 96–113; BP diastolic 39–69; PULSE 36–83; RESP 15–18; TEMP 36.1–36.7; O2SAT 89–98
--- NOTE | 2024-02-14 00:30 | ECG_ITS ---
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 Measurements Intervals [place] Rate: 40 P: 66 NC: 178 QRS: 24 QRSD: 85 T: 39 QT: 492 QTc: 404 Interpretive Statements SINUS BRADYCARDIA MODERATE T-WAVE ABNORMALITY, CONSIDER ANTERIOR ISCHEMIA [-0.1+ mV T-WAVE IN V3/V4 Compared to ECG 02/13/2024 10:06:39 Sinus tachycardia no longer present Ventricular premature complex(es) no longer present T-wave abnormality still present Possible ischemia still present Electronically Signed On 02-14-2024 17:08:08 CDT by Riki Michel M.D. [id number] f
--- NOTE | 2024-02-14 01:03 | PC.NURSE ---
Pt heart rate ranged from 30's-40's throughout the night tonight. EKG was performed and doctor notified. Doctor responded and said to continue telemetry monitoring.
[2024-02-14 03:10] LABS: Basophils % 0.2 %; Hematocrit 32.5 % (37-53); Lymphocytes # 0.4 10^3/uL (0.8-4.8); Lymphocytes % 7.5 %; Mean Corpuscular HGB Conc 31.4 g/dL (30-55); Mean Corpuscular Hemoglobin 28.7 pg (27-33); Mean Corpuscular Volume 91.3 fl (82-101); Mean Platelet Volume 8.5 fL (7.4-10.4); Monocytes # 0.3 10^3/uL (0.2-0.9); Monocytes % 5.8 %; Neutrophils # 4.15 10^3/uL (1.8-7.7); Neutrophils % 85.9 %; Nucleated Red Blood Cells % 0 %; Platelet Count 283 10^3/cmm (157-399); Red Blood Count 3.56 10^6/uL (3.85-5.65); Red Cell Distribution Width 15.5 % (12.1-15.1); White Blood Count 4.83 10^3/uL (3.29-11.43)
[2024-02-14 03:27] LABS: Alanine Aminotransferase 17 U/L (0-41); Alkaline Phosphatase 77 U/L (40-130); Anion Gap 9.7 (5-19); Aspartate Amino Transferase 18 U/L (0-40); Blood Urea Nitrogen 29 mg/dL (8-23); Carbon Dioxide 29 mmol/L (22-29); Chloride 103 mmol/L (98-107); Creatinine Clr Calc Pharmacy 87.0556; Globulin 2.8 g/dL (1.3-4.6); Glucose 175 mg/dL (65-115); Magnesium 2.1 mg/dL (1.7-2.3); Osmolality Calculated 294 mOsm/kg (285-295); Potassium 4.7 mmol/L (3.5-5.1); Sodium 137 mmol/L (136-145); Total Bilirubin 0.5 mg/dL (0.15-1.2); Total Protein 5.8 g/dL (6.6-8.7)
[2024-02-14 06:24] LABS: Glucose Point of Care 158 mg/dL (70-110)
[2024-02-14] MEDS: methylPREDNISolone sod succ 125 mg/2 mL INJ 60 MG IVP (06:24)
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
[2024-02-14] MEDS: budesonide 0.5 mg/2 mL Neb INHALATION ×2 (08:36→20:28)
[2024-02-14] MEDS: ipratropium-albuterol 3 mL Neb INHALATION ×3 (08:36→20:28)
[2024-02-14] MEDS: folic acid 1 mg Tablet PO (08:50)
[2024-02-14] MEDS: finasteride 5 mg Tablet PO (08:50)
[2024-02-14] MEDS: pyridoxine 50 mg Tablet PO (08:50)
[2024-02-14] MEDS: famotidine 20 mg Tablet PO ×2 (08:50→17:31)
[2024-02-14] MEDS: cetirizine 10 mg Tablet PO (08:50)
[2024-02-14] MEDS: doxycycline 100 mg Tablet PO ×2 (08:50→17:31)
[2024-02-14] MEDS: pantoprazole DR 40 mg Tablet PO (08:50)
[2024-02-14] MEDS: tamsulosin 0.4 mg Capsule 0.400000000000000022 MG PO (08:50)
[2024-02-14] MEDS: insulin lispro 100 unit/1 mL SUBCUT ×4 (08:50→21:04)
[2024-02-14] MEDS: piperacillin-tazobactam 3.375 GM in sodium chloride 0.9% (plus) 50 ML IV ×3 (08:51→23:30)
--- NOTE | 2024-02-14 09:09 | PC.CHAP ---
Pastoral Care Encounter/Spiritual Assessment Type of Contact [] Declined train attendant visit [] Patient/Family/Request visit [] Outpatient visit [] Follow-up visit [] Physician referral [] Code/Alert [x] Routine visit [] Staff referral [] Actively dying [] Patient sleeping [] Family support [] [] Out of room [] Palliative care [] [] Receiving care in room [] Pre-surgical visit [] Trauma [] Long length of stay [] ICU visit [] Other: Relational/Emotional Strength [x] Patient feels connected with others/family/visitors/staff [] Distress [] Loneliness/isolation [] Abandonment Spirituality of Patient [x] Person of Tracey [] Attends Alevism of their Tracey [x] Believes in Prayer [] Reads Bible or Synagogue materials [] There are Spiritual issues to be addressed Supervisor Pairing And Inspecting Interventions [x] Prayer [x] Active listening [] Non-anxious presence [x] Spiritual/emotional support [] Crisis/trauma care [] Spiritual counseling [] Bereavement support [] Provided bereavement packet [] Provided Bible/devotional materials [] Provided toy/stuffed animal, coloring book to patient or family member [] Provided Communion [] Anointing/[place] [] Salvation [x] Completed spiritual assessment [] Other: Impact on Illness or Injury [] Angry [] Fearful [] Anxious [] Often cries [] Exhaustion [] Unable to work [] Unable to attend congregation [] Unable to walk/stand [] Unable to read [] Unable to drive [] Unable to eat/drink [] Unable to sleep [] Unable to be with family [] Patient intubated [] Other: Summary Time spent with patient 5 min
--- NOTE | 2024-02-14 10:39 | PM.PN ---
Subjective Subjective: Patient reports he feels about the same. Still little bit short of breath. Not really coughing anything up. Medications: Reviewed: Yes Vitals/I&O/Wt Last Vital Signs Temp 97.1 F L 02/14/24 04:00 Pulse 74 02/14/24 08:36 Resp 18 02/14/24 08:36 BP 110/39 02/14/24 07:59 Pulse Ox 90 02/14/24 08:36 O2 Del Method Nasal Cannula 02/14/24 08:36 O2 Flow Rate 3.5 02/14/24 08:36 02/13/24 02/14/24 02/14/24 22:59 06:59 14:59 Intake Total 1530 / 1830 730 / 2560 240 / 240 Output Total 1800 / 1800 0 / 1800 Balance -270 / 30 730 / 760 240 / 240 Weight last 48 hrs Weight 73.437 kg Weight 72.575 kg Weight 72.575 kg Physical Exam Narrative: General exam is a white male, mild tachypnea, on 5 L of oxygen. He appears better. I am lifting down to 3.5 L and O2 sat 90% currently. Neck is supple no lymphadenopathy thyromegaly Cardiovascular regular rate and rhythm without murmur Lungs tachypnea improved, clear but diminished breath sounds bilaterally Abdomen is soft. No specific tenderness. No obvious organomegaly Extremities no sinus clubbing edema, cap refill brisk Data 02/14/24 02:45 02/14/24 02:45 Micro: Microbiology 02/13/24 10:36 Blood Culture - Preliminary Blood SPECIMEN COLLECTED 02/13/24 10:32 Blood Culture - Preliminary Blood SPECIMEN COLLECTED A&P Assessment and plan (1) Hypoxia: Move down to 3.[address] scan finding of worsening interstitial thickening noted on CT scan compared to February 06, that this could be a immune checkpoint inhibitor with pneumonitis. Solu-Medrol 125 mg IV given in the ER. Continue Solu-Medrol 60 mg IV every 24 hours Discontinued pembrolizumab. Do not restart on discharge. Do continue prednisone 60 mg a day on discharge, with follow-up with oncology. Wean oxygen as tolerated. (2) Pneumonia: Concern of bilateral pneumonia with interstitial findings on CTA. No pulmonary embolism was present. Continue Zosyn as he is at risk for aspiration Speech therapy consultation Sputum culture Respiratory panel Continue doxycycline p.o. Urinalysis unrevealing Blood cultures pending (3) COPD (chronic obstructive pulmonary disease): Budesonide twice daily DuoNeb every 6 hours. No obvious exacerbation currently in this patient who is not currently wheezing. 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 Patient without chest discomfort. Nuclear stress test no large areas of reversible ischemia. This was relatively recently done. Limited echo shows normal EF Lasix 20 mg IV x 1 given on admission Recent TSH was normal Qualifiers: Cardiomyopathy type: other Qualified Code(s): I42.8 - Other cardiomyopathies (6) Esophageal cancer: Patient with history of esophageal cancer, treated with pembrolizumab. Holding pembrolizumab currently. 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
[2024-02-14 11:23] LABS: Glucose Point of Care 232 mg/dL (70-110)
--- NOTE | 2024-02-14 12:43 | PC.SOCIAL ---
IMM Update pg 2 of IMM updated and reviewed w/ patient. Copy provided and copy dated, initialed and placed in chart.
[2024-02-14] MEDS: enoxaparin 40 mg/0.4 mL Syringe SUBCUT (15:54)
[2024-02-14 17:25] LABS: Glucose Point of Care 350 mg/dL (70-110)
[2024-02-14] MEDS: atorvastatin 40 mg Tablet PO (17:31)
[2024-02-14 20:34] LABS: Glucose Point of Care 195 mg/dL (70-110)
[2024-02-15] VITALS (13 sets, daily range): BP systolic 100–134; BP diastolic 51–77; PULSE 44–101; RESP 16–20; TEMP 36.4–36.7; O2SAT 91–95
[2024-02-15 03:45] LABS: Basophils % 0.1 %; Eosinophils % 0.1 %; Hematocrit 31.3 % (37-53); Lymphocytes # 0.5 10^3/uL (0.8-4.8); Lymphocytes % 4.6 %; Mean Corpuscular HGB Conc 32.3 g/dL (30-55); Mean Corpuscular Hemoglobin 28.8 pg (27-33); Mean Corpuscular Volume 89.2 fl (82-101); Mean Platelet Volume 8.5 fL (7.4-10.4); Monocytes # 0.5 10^3/uL (0.2-0.9); Monocytes % 4.6 %; Neutrophils # 10.36 10^3/uL (1.8-7.7); Nucleated Red Blood Cells % 0 %; Platelet Count 322 10^3/cmm (157-399); Red Blood Count 3.51 10^6/uL (3.85-5.65); Red Cell Distribution Width 15.6 % (12.1-15.1); White Blood Count 11.51 10^3/uL (3.29-11.43)
[2024-02-15 04:06] LABS: Alanine Aminotransferase 18 U/L (0-41); Albumin Level 2.9 g/dL (3.5-5.2); Alkaline Phosphatase 72 U/L (40-130); Anion Gap 9.2 (5-19); Aspartate Amino Transferase 18 U/L (0-40); Blood Urea Nitrogen 27 mg/dL (8-23); Carbon Dioxide 30 mmol/L (22-29); Chloride 104 mmol/L (98-107); Creatinine Clr Calc Pharmacy 87.2569; Globulin 2.7 g/dL (1.3-4.6); Glucose 139 mg/dL (65-115); Osmolality Calculated 295 mOsm/kg (285-295); Potassium 4.2 mmol/L (3.5-5.1); Sodium 139 mmol/L (136-145); Total Bilirubin 0.4 mg/dL (0.15-1.2); Total Protein 5.6 g/dL (6.6-8.7)
[2024-02-15] MEDS: methylPREDNISolone sod succ 125 mg/2 mL INJ 60 MG IVP ×2 (06:04→17:20)
[2024-02-15 06:26] LABS: Glucose Point of Care 126 mg/dL (70-110)
[2024-02-15] MEDS: budesonide 0.5 mg/2 mL Neb INHALATION ×2 (08:02→20:41)
[2024-02-15] MEDS: ipratropium-albuterol 3 mL Neb INHALATION ×3 (08:02→20:40)
[2024-02-15] MEDS: doxycycline 100 mg Tablet PO ×2 (09:20→17:19)
[2024-02-15] MEDS: cetirizine 10 mg Tablet PO (09:20)
[2024-02-15] MEDS: finasteride 5 mg Tablet PO (09:20)
[2024-02-15] MEDS: pyridoxine 50 mg Tablet PO (09:20)
[2024-02-15] MEDS: folic acid 1 mg Tablet PO (09:20)
[2024-02-15] MEDS: famotidine 20 mg Tablet PO ×2 (09:20→17:19)
[2024-02-15] MEDS: tamsulosin 0.4 mg Capsule 0.400000000000000022 MG PO (09:20)
[2024-02-15] MEDS: piperacillin-tazobactam 3.375 GM in sodium chloride 0.9% (plus) 50 ML IV ×2 (09:21→15:43)
[2024-02-15] MEDS: pantoprazole DR 40 mg Tablet PO (09:21)
[2024-02-15 10:55] LABS: Glucose Point of Care 199 mg/dL (70-110)
[2024-02-15] MEDS: insulin lispro 100 unit/1 mL SUBCUT ×3 (11:28→21:21)
--- NOTE | 2024-02-15 13:47 | P.PN_ITS ---
Subjective 2 Subjective: Patient was seen this morning, does report weakness, fatigue, no fevers, no chills, does report cough, intermittent shortness of breath, no chest pain, no palpitations Vitals/I&O/Wt Last Vital Signs Temp 97.7 F 02/15/24 12:22 Pulse 101 H 02/15/24 12:22 Resp 19 H 02/15/24 12:22 BP 110/68 02/15/24 12:22 Pulse Ox 93 02/15/24 12:22 O2 Del Method Nasal Cannula 02/15/24 12:22 O2 Flow Rate 4 02/15/24 08:03 02/14/24 02/15/24 02/15/24 22:59 06:59 14:59 Intake Total 770 / 1060 290 / 1350 840 / 840 Output Total 1500 / 2200 950 / 950 Balance -730 / -1140 290 / -850 -110 / -110 Weight last 48 hrs Weight 73.028 kg Weight 73.437 kg Weight 72.575 kg Physical Exam 2 Const: COMMON NORMALS: no acute distress and patient oriented x3 Resp: COMMON NORMALS: normal respiratory effort, No retractions and No use of accessory muscles AUSCULTATION: wheezes Cardio: COMMON NORMALS: regular rate, regular rhythm, S1 normal heart sound present and S2 normal heart sound present RATE: regular rate RHYTHM: r egular rhythm HEART SOUNDS: S1 normal heart sound present and S2 normal heart sound present GI: COMMON NORMALS: Normal to inspection, nondistended, normoactive bowel sounds present and non-tender Extremity: COMMON NORMALS: no pedal edema Neuro: COMMON NORMALS: patient oriented x3 Data 02/15/24 03:15 02/15/24 03:15 Micro: Microbiology 02/13/24 10:36 Blood Culture - Preliminary Blood NEGATIVE TO DATE 02/13/24 10:32 Blood Culture - Preliminary Blood NEGATIVE TO DATE A&P Assessment and plan (1) Hypoxia: Move down to 3.[address] scan finding of worsening interstitial thickening noted on CT scan compared to February 06, that this could be a immune checkpoint inhibitor with pneumonitis. Solu-Medrol 125 mg IV given in the ER. Continue Solu-Medrol 60 mg IV every 24 hours Discontinued pembrolizumab. Do not restart on discharge. Do continue prednisone 60 mg a day on discharge, with follow-up with oncology. Wean oxygen as tolerated. (2) Pneumonia: Concern of bilateral pneumonia with interstitial findings on CTA. No pulmonary embolism was present. Continue Zosyn as he is at risk for aspiration Speech therapy consultation Sputum culture Respiratory panel so far negative Continue doxycycline p.o. Urinalysis unrevealing Blood cultures pending (3) COPD (chronic obstructive pulmonary disease): Budesonide twice daily DuoNeb every 6 hours. Does have evidence of wheezing, crease Solu-Medrol to 60 every 12 Qualifiers: COPD type: emphysema Emphysema type: centrilobular Qualified Code(s): J43.2 - Centrilobular emphysema (4) Diabetes: Sliding scale insulin Consistent carb diet Qualifiers: Diabetes mellitus type: type 2 Diabetes mellitus [facility] insulin use: without intermediate school teacher use Diabetes mellitus complication status: without complication Qualified Code(s): E11.9 - Type 2 diabetes mellitus without complications (5) Cardiomyopathy: Patient with history of cardiomyopathy. Patient without chest discomfort. Nuclear stress test no large areas of reversible ischemia. This was relatively recently done. Limited echo shows normal EF Lasix 20 mg IV x 1 given on admission, hold off on further Lasix Recent TSH was normal Qualifiers: Cardiomyopathy type: other Qualified Code(s): I42.8 - Other cardiomyopathies (6) Esophageal cancer: Patient with history of esophageal cancer, treated with pembrolizumab. Holding pembrolizumab currently. 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 Whitaker's note, reviewed Dr. Rebollar's note, reviewed his workup, reviewed CT angiogram the chest were reviewed echocardiogram reviewed blood work, reviewed blood work ordered by Dr. Mercado reviewed patient's prior medical history, prior charts, spoke to patient, spoke to nursing staff, continue IV antibiotics continue steroids, now with COPD exacerbation, increase steroid dose Attestations 2 Medical Necessity Statement*: Patient requires hospitalization for bilateral pneumonia and COPD exacerbation, pneumonitis, Diagnoses Hypoxia R09.02 Pneumonia J18.9 Centrilobular emphysema J43.2 COPD type: emphysema Emphysema type: centrilobular Type 2 diabetes mellitus without complication, without long-term current use of insulin E11.9 Diabetes mellitus type: type 2 Diabetes mellitus [facility] insulin use: without [facility] use Diabetes mellitus complication status: without complication Other cardiomyopathy I42.8 Cardiomyopathy type: other Malignant neoplasm of esophagus, unspecified location C15.9 Malignant neoplasm of esophagus location: unspecified location 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
[2024-02-15] MEDS: enoxaparin 40 mg/0.4 mL Syringe SUBCUT (15:43)
[2024-02-15 16:33] LABS: Glucose Point of Care 308 mg/dL (70-110)
[2024-02-15] MEDS: atorvastatin 40 mg Tablet PO (17:19)
[2024-02-15 20:58] LABS: Glucose Point of Care 167 mg/dL (70-110)
--- NOTE | 2024-02-15 21:24 | PC.NURSE ---
Patient's oxygen titrated down from 5 liters to 4 liters. Patient's oxygen saturation 90 percent on 4 liters. Patient self-caths and is using his own home supplies.
[2024-02-16] VITALS (13 sets, daily range): BP systolic 97–141; BP diastolic 56–83; PULSE 47–114; RESP 16–20; TEMP 36.3–36.8; O2SAT 89–96
[2024-02-16] MEDS: piperacillin-tazobactam 3.375 GM in sodium chloride 0.9% (plus) 50 ML IV ×3 (00:22→15:34)
[2024-02-16] MEDS: ipratropium-albuterol 3 mL Neb INHALATION ×4 (01:25→19:40)
[2024-02-16 03:34] LABS: Basophils % 0.1 %; Lymphocytes # 0.4 10^3/uL (0.8-4.8); Lymphocytes % 3.5 %; Mean Corpuscular HGB Conc 32.1 g/dL (30-55); Mean Corpuscular Hemoglobin 28.6 pg (27-33); Mean Corpuscular Volume 88.9 fl (82-101); Mean Platelet Volume 8.3 fL (7.4-10.4); Monocytes # 0.4 10^3/uL (0.2-0.9); Monocytes % 3.2 %; Neutrophils # 10.34 10^3/uL (1.8-7.7); Neutrophils % 91.5 %; Nucleated Red Blood Cells % 0 %; Platelet Count 346 10^3/cmm (157-399); Red Blood Count 3.71 10^6/uL (3.85-5.65); Red Cell Distribution Width 15.7 % (12.1-15.1)
[2024-02-16 03:52] LABS: Alanine Aminotransferase 43 U/L (0-41); Albumin Level 3.1 g/dL (3.5-5.2); Alkaline Phosphatase 91 U/L (40-130); Anion Gap 15.3 (5-19); Aspartate Amino Transferase 39 U/L (0-40); Blood Urea Nitrogen 28 mg/dL (8-23); C Reactive Protein 11.1 mg/L (0.0-4.9); Calcium 8.9 mg/dL (8.5-10.5); Carbon Dioxide 27 mmol/L (22-29); Chloride 102 mmol/L (98-107); Creatinine Clr Calc Pharmacy 87.4587; Globulin 2.4 g/dL (1.3-4.6); Glucose 232 mg/dL (65-115); Osmolality Calculated 303 mOsm/kg (285-295); Potassium 4.3 mmol/L (3.5-5.1); Sodium 140 mmol/L (136-145); Total Bilirubin 0.5 mg/dL (0.15-1.2); Total Protein 5.5 g/dL (6.6-8.7)
[2024-02-16 03:59] LABS: NT Pro B Type Natriuretic Pept 1895 pg/mL (0-450); Procalcitonin 0.04 ng/mL (0-0.5)
[2024-02-16] MEDS: methylPREDNISolone sod succ 125 mg/2 mL INJ 60 MG IVP ×2 (04:52→17:25)
[2024-02-16 06:33] LABS: Glucose Point of Care 189 mg/dL (70-110)
[2024-02-16] MEDS: budesonide 0.5 mg/2 mL Neb INHALATION ×2 (08:51→19:40)
[2024-02-16] MEDS: cetirizine 10 mg Tablet PO (08:56)
[2024-02-16] MEDS: pyridoxine 50 mg Tablet PO (08:56)
[2024-02-16] MEDS: famotidine 20 mg Tablet PO ×2 (08:56→17:25)
[2024-02-16] MEDS: doxycycline 100 mg Tablet PO ×2 (08:56→17:25)
[2024-02-16] MEDS: tamsulosin 0.4 mg Capsule 0.400000000000000022 MG PO (08:56)
[2024-02-16] MEDS: finasteride 5 mg Tablet PO (08:56)
[2024-02-16] MEDS: pantoprazole DR 40 mg Tablet PO (08:56)
[2024-02-16] MEDS: insulin lispro 100 unit/1 mL SUBCUT ×4 (08:56→21:04)
[2024-02-16] MEDS: folic acid 1 mg Tablet PO (08:56)
[2024-02-16 11:32] LABS: Glucose Point of Care 200 mg/dL (70-110)
--- NOTE | 2024-02-16 15:26 | PM.PN ---
Subjective Subjective: Patient was Seen this morning, continues to complain?weakness, fatigue, no fevers, chills as a productive cough, does report shortness of breath, Vitals/I&O/Wt Last Vital Signs Temp 98.1 F 02/16/24 12:00 Pulse 80 02/16/24 13:37 Resp 18 02/16/24 13:37 BP 129/73 02/16/24 12:00 Pulse Ox 96 02/16/24 13:37 O2 Del Method Nasal Cannula 02/16/24 13:37 O2 Flow Rate 4 02/16/24 13:37 02/16/24 02/16/24 02/16/24 06:59 14:59 22:59 Intake Total 530 / 2090 650 / 650 Output Total 450 / 1925 Balance 80 / 165 650 / 650 Weight last 48 hrs Weight 73.482 kg Weight 73.028 kg Physical Exam Const: COMMON NORMALS: no acute distress and patient oriented x3 Resp: COMMON NORMALS: normal respiratory effort, No retractions and No use of accessory muscles AUSCULTATION: crackles and wheezes Cardio: COMMON NORMALS: regular rate, regular rhythm, S1 normal heart sound present and S2 normal heart sound present RATE: regular rate RHYTHM: regular rhythm HEART SOUNDS: S1 normal heart sound present and S2 normal heart sound present GI: COMMON NORMALS: Normal to inspection, nondistended, normoactive bowel sounds present, non-tender and no masses Extremity: COMMON NORMALS: no pedal edema Neuro: COMMON NORMALS: patient oriented x3 Psych: COMMON NORMALS: mental status grossly normal Data 02/16/24 02:49 02/16/24 02:49 Micro: Microbiology 02/14/24 17:42 Gram Stain - Final Sputum - Expectorated Sputum Sputum Culture - Final A&P Assessment and plan (1) Hypoxia: Move down to 3.[address] scan finding of worsening interstitial thickening noted on CT scan compared to February 06, that this could be a immune checkpoint inhibitor with pneumonitis. Solu-Medrol 125 mg IV given in the ER. Continue Solu-Medrol 60 mg IV every 24 hours Discontinued pembrolizumab. Do not restart on discharge. Do continue prednisone 60 mg a day on discharge, with follow-up with oncology. Wean oxygen as tolerated. (2) Pneumonia: Concern of bilateral pneumonia with interstitial findings on CTA. No pulmonary embolism was present. Continue Zosyn as he is at risk for aspiration Speech therapy consultation Sputum culture Respiratory panel so far negative Continue doxycycline p.o. Urinalysis unrevealing Blood cultures pending (3) COPD (chronic obstructive pulmonary disease): Budesonide twice daily DuoNeb every 6 hours. 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 Patient without chest discomfort. Nuclear stress test no large areas of reversible ischemia. This was relatively recently done. Limited echo shows normal EF Lasix 20 mg IV x 1 given on admission, hold off on further Lasix Recent TSH was normal Qualifiers: Cardiomyopathy type: other Qualified Code(s): I42.8 - Other cardiomyopathies (6) Esophageal cancer: Patient with history of esophageal cancer, treated with pembrolizumab. Holding pembrolizumab currently. 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
[2024-02-16] MEDS: FUROsemide 10 mg/mL SDV 2mL 20 MG IVP (15:34)
[2024-02-16] MEDS: enoxaparin 40 mg/0.4 mL Syringe SUBCUT (15:34)
[2024-02-16 16:54] LABS: Glucose Point of Care 245 mg/dL (70-110)
[2024-02-16] MEDS: atorvastatin 40 mg Tablet PO (17:25)
[2024-02-16 20:51] LABS: Glucose Point of Care 217 mg/dL (70-110)
[2024-02-17] MEDS: piperacillin-tazobactam 3.375 GM in sodium chloride 0.9% (plus) 50 ML IV ×2 (00:25→08:10)
[2024-02-17 03:43] VITALS: BP 112/63; PULSE 51; RESP 16; TEMP 36.3; O2SAT 93
[2024-02-17 05:02] LABS: Basophils % 0.1 %; Hematocrit 34.4 % (37-53); Lymphocytes # 0.5 10^3/uL (0.8-4.8); Lymphocytes % 4.1 %; Mean Corpuscular HGB Conc 32.6 g/dL (30-55); Mean Corpuscular Hemoglobin 28.4 pg (27-33); Mean Corpuscular Volume 87.1 fl (82-101); Mean Platelet Volume 8.2 fL (7.4-10.4); Monocytes # 0.5 10^3/uL (0.2-0.9); Monocytes % 3.6 %; Neutrophils % 91.2 %; Nucleated Red Blood Cells % 0.2 %; Platelet Count 360 10^3/cmm (157-399); Red Blood Count 3.95 10^6/uL (3.85-5.65); Red Cell Distribution Width 15.8 % (12.1-15.1)
[2024-02-17 05:18] LABS: Alanine Aminotransferase 37 U/L (0-41); Alkaline Phosphatase 84 U/L (40-130); Anion Gap 12.2 (5-19); Aspartate Amino Transferase 23 U/L (0-40); Blood Urea Nitrogen 34 mg/dL (8-23); C Reactive Protein 6.1 mg/L (0.0-4.9); Calcium 8.8 mg/dL (8.5-10.5); Carbon Dioxide 29 mmol/L (22-29); Chloride 100 mmol/L (98-107); Creatinine Clr Calc Pharmacy 87.6604; Globulin 2.7 g/dL (1.3-4.6); Glucose 196 mg/dL (65-115); Osmolality Calculated 297 mOsm/kg (285-295); Potassium 4.2 mmol/L (3.5-5.1); Sodium 137 mmol/L (136-145); Total Bilirubin 0.5 mg/dL (0.15-1.2); Total Protein 5.7 g/dL (6.6-8.7)
[2024-02-17 05:31] LABS: NT Pro B Type Natriuretic Pept 968 pg/mL (0-450); Procalcitonin 0.04 ng/mL (0-0.5)
[2024-02-17] MEDS: methylPREDNISolone sod succ 125 mg/2 mL INJ 60 MG IVP (05:36)
[2024-02-17 05:44] VITALS: PULSE 54
[2024-02-17 06:26] LABS: Glucose Point of Care 217 mg/dL (70-110)
[2024-02-17 07:31] VITALS: BP 125/74; PULSE 73; RESP 19; TEMP 36.5; O2SAT 91
[2024-02-17] MEDS: budesonide 0.5 mg/2 mL Neb INHALATION (07:57)
[2024-02-17] MEDS: ipratropium-albuterol 3 mL Neb INHALATION (07:57)
[2024-02-17 07:58] VITALS: PULSE 62; RESP 16; O2SAT 92
[2024-02-17 08:05] VITALS: PULSE 64
[2024-02-17] MEDS: insulin lispro 100 unit/1 mL SUBCUT (08:11)
[2024-02-17] MEDS: doxycycline 100 mg Tablet PO (08:11)
[2024-02-17] MEDS: finasteride 5 mg Tablet PO (08:11)
[2024-02-17] MEDS: tamsulosin 0.4 mg Capsule 0.400000000000000022 MG PO (08:11)
[2024-02-17] MEDS: pantoprazole DR 40 mg Tablet PO (08:11)
[2024-02-17] MEDS: folic acid 1 mg Tablet PO (08:11)
[2024-02-17] MEDS: famotidine 20 mg Tablet PO (08:11)
[2024-02-17] MEDS: cetirizine 10 mg Tablet PO (08:11)
[2024-02-17] MEDS: pyridoxine 50 mg Tablet PO (08:11)
--- NOTE | 2024-02-17 11:09 | P.DS_ITS ---
Discharge Providers Date of Admission: 02/13/24 14:45 Date of Discharge: February 17, 2024 Attending Provider at Admission: Cody Whitaker MD Attending Provider at Discharge: Ryne Roy MD Primary Care Provider: TASIA Last Diagnoses at Discharge Discharge Diagnosis (1) Hypoxia: Status: Acute (2) Pneumonia: Status: Inactive (3) COPD (chronic obstructive pulmonary disease): Status: Chronic Qualifiers: COPD type: emphysema Emphysema type: centrilobular Qualified Code(s): J43.2 - Centrilobular emphysema (4) Diabetes: Status: Acute Qualifiers: Diabetes mellitus type: type 2 Diabetes mellitus longterm insulin use: without longterm use Diabetes mellitus complication status: without complication Qualified Code(s): E11.9 - Type 2 diabetes mellitus without complications (5) Cardiomyopathy: Status: Acute Qualifiers: Cardiomyopathy type: other Qualified Code(s): I42.8 - Other cardiomyopathies (6) Esophageal cancer: Status: Acute Qualifiers: Malignant neoplasm of esophagus location: unspecified location Qualified Code(s): C15.9 - Malignant neoplasm of esophagus, unspecified Permanent problem details: s/p chemo-radation, in remission (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 Occasional loose stool but this is not unusual. He had recently been on some Keflex for an ear infection. He is currently still being treated with Keytruda for esophageal cancer. Overall, oxygen requirement has increased up to 5 L, from 3 L at baseline. He has had occasional nausea but no vomiting. No significant cough, blood in stool, black or tarry stools. No specific discomfort. On February 06 through the emergency department he was placed on Levaquin. He did have an esophageal dilation around 1 month ago without complication. Patient was admitted to [facility] for hypoxia, secondary to pneumonia, pneumonitis associated with Keytruda, hypoxia, COPD exacerbation. Patient was monitored Patient received broad-spectrum antibiotic therapy, steroid therapy, overall clinically proved remained afebrile, cultures so far negative. Will be discharged on prednisone burst, with a close follow-up with oncology as outpatient, discharged on Levaquin for 5 remaining days. Patient was advised if he has any recurrent fevers please come back to emergency room. Continue to hold Keytruda until patient follows up with oncology Physical Exam Const: COMMON NORMALS: no acute distress and patient oriented x3 Resp: COMMON NORMALS: normal respiratory effort, No retractions, No use of accessory muscles and clear to auscultation bilaterally AUSCULTATION: clear to auscultation bilaterally Cardio: COMMON NORMALS: regular rate, regular rhythm, S1 normal heart sound present and S2 normal heart sound present RATE: regular rate RHYTHM: regular rhythm HEART SOUNDS: S1 normal heart sound present and S2 normal heart sound present GI: COMMON NORMALS: Normal to inspection, nondistended, normoactive bowel sounds present and non-tender Extremity: COMMON NORMALS: no pedal edema Neuro: COMMON NORMALS: patient oriented x3 Psych: COMMON NORMALS: mental status grossly normal Discharge Data Studies Completed and Pending Completed Studies During Hospitalization Category Date Time Status CTA chest [CT angio chest PE protcl [id number]] Stat Cat Scan 02/13/24 11:15 Completed XR chest 1V portable [id number] Stat Exams 02/13/24 10:05 Completed CV. echo limited [id number] Routine Ultrasound 02/13/24 15:31 Completed Pending at discharge Category Date Time Status Blood Culture Stat Lab 02/13/24 10:36 Results C Reactive Protein AM LABS Lab 02/18/24 04:00 Ordered Complete Blood Count w/Auto AM LABS Lab 02/18/24 04:00 Ordered Comprehensive Metabolic Panel AM LABS Lab 02/18/24 04:00 Ordered MRSA [Methicillin Resistant S.aureu] Routine Lab 02/13/24 16:32 Received NT Pro B Type Natriuretic Pept QAM Lab 02/18/24 06:00 Ordered Procalcitonin AM LABS Lab 02/18/24 04:00 Ordered Radiology Impressions Chest X-Ray 02/13/24 10:05 IMPRESSION: No acute cardiopulmonary disease. Laboratory Results WBC 12.50 10^3/uL (3.29-11.43) H 02/17/24 04:45 RBC 3.95 10^6/uL (3.85-5.65) 02/17/24 04:45 Hgb 11.20 g/dL (11.27-16.99) L 02/17/24 04:45 Hct 34.4 % (37-53) L 02/17/24 04:45 MCV 87.1 fl (82-101) 02/17/24 04:45 MCH 28.4 pg (27-33) 02/17/24 04:45 MCHC 32.6 g/dL (30-55) 02/17/24 04:45 RDW 15.8 % (12.1-15.1) H 02/17/24 04:45 Plt Count 360 10^3/cmm (157-399) 02/17/24 04:45 MPV 8.2 fL (7.4-10.4) 02/17/24 04:45 Neut % (Auto) 91.2 % 02/17/24 04:45 Lymph % (Auto) 4.1 % 02/17/24 04:45 [place] % (Auto) 3.6 % 02/17/24 04:45 Eos % (Auto) 0.0 % 02/17/24 04:45 Baso % (Auto) 0.1 % 02/17/24 04:45 Neut # (Auto) 11.40 10^3/uL (1.8-7.7) H 02/17/24 04:45 Lymph # (Auto) 0.5 10^3/uL (0.8-4.8) L 02/17/24 04:45 [place] # (Auto) 0.5 10^3/uL (0.2-0.9) 02/17/24 04:45 Eos # (Auto) 0.0 10^3/uL (0.0-0.8) 02/17/24 04:45 Baso # (Auto) 0.0 10^3/uL (0.0-0.1) 02/17/24 04:45 Nucleated RBC % (auto) 0.2 % 02/17/24 04:45 Nucleated RBCs # 0.0 /100WBC 02/17/24 04:45 PT 14.00 SECONDS (12.1-14.9) 02/13/24 09:48 INR 1.05 (0.8-1.2) 02/13/24 09:48 Specimen Type Arterial 02/13/24 10:04 Sample Site Radial, right 02/13/24 10:04 ABG pH 7.47 (7.35-7.45) H 02/13/24 10:04 ABG pCO2 36.3 mmHg (35-45) 02/13/24 10:04 ABG pO2 58.3 mmHg (80.0-100.0) L 02/13/24 10:04 ABG HCO3 26.6 mmol/L (22-26) H 02/13/24 10:04 ABG Base Excess 3.0 mmol/L (-2.0-2.0) H 02/13/24 10:04 Ion Test Pos 02/13/24 10:04 Hematocrit 39.1 % (42-52) L 02/13/24 10:04 Hgb O2 Saturation 89.0 % (95-100) L 02/13/24 10:04 Carboxyhemoglobin 0.1 %THgb (0.4-20.1) L 02/13/24 10:04 Methemoglobin 0.3 % (0.4-1.5) L 02/13/24 10:04 Total Hemoglobin 12.8 g/dL (14-18) L 02/13/24 10:04 O2 Delivery Device [place] 02/13/24 10:04 O2 Liters/Min 5.0 % 02/13/24 10:04 Die Machine Operator ID [place] 02/13/24 10:04 Sodium 137 mmol/L (136-145) 02/17/24 04:45 Potassium 4.2 mmol/L (3.5-5.1) 02/17/24 04:45 Chloride 100 mmol/L (98-107) 02/17/24 04:45 Carbon Dioxide 29 mmol/L (22-29) 02/17/24 04:45 Anion Gap 12.2 (5-19) 02/17/24 04:45 BUN 34 mg/dL (8-23) H 02/17/24 04:45 Creatinine 0.7 mg/dL (0.7-1.2) 02/17/24 04:45 GFR Calculation Not Reportable 02/17/24 04:45 Glucose 196 mg/dL (65-115) H 02/17/24 04:45 POC Glucose 217 mg/dL (70-110) H 02/17/24 06:23 Calculated Osmolality 297 mOsm/kg (285-295) H 02/17/24 04:45 Calcium 8.8 mg/dL (8.5-10.5) 02/17/24 04:45 Magnesium 2.1 mg/dL (1.7-2.3) 02/14/24 02:45 Total Bilirubin 0.5 mg/dL (0.15-1.2) 02/17/24 04:45 AST 23 U/L (0-40) 02/17/24 04:45 ALT 37 U/L (0-41) 02/17/24 04:45 Alkaline Phosphatase 84 U/L (40-130) 02/17/24 04:45 C-Reactive Protein 6.1 mg/L (0.0-4.9) H 02/17/24 04:45 NT-Pro-B Natriuret Pep 968 pg/mL (0-450) H 02/17/24 04:45 Total Protein 5.7 g/dL (6.6-8.7) L 02/17/24 04:45 Albumin 3.0 g/dL (3.5-5.2) L 02/17/24 04:45 Globulin 2.7 g/dL (1.3-4.6) 02/17/24 04:45 Procalcitonin 0.04 ng/mL (0-0.5) 02/17/24 04:45 Urine Color Yellow (Yellow) 02/13/24 16:05 Urine Appearance Clear (CLEAR) 02/13/24 16:05 Urine pH 7 (5-7) 02/13/24 16:05 Ur Specific [place] 1.010 (1.005-1.030) 02/13/24 16:05 Urine Protein Neg (Negative) 02/13/24 16:05 Urine Glucose (UA) Norm (Normal) 02/13/24 16:05 Urine Ketones Negative (Negative) 02/13/24 16:05 Urine Blood Neg (Negative) 02/13/24 16:05 Urine Nitrate Negative (Negative) 02/13/24 16:05 Urine Bilirubin Neg (Negative) 02/13/24 16:05 Urine Urobilinogen Norm mg/dL (Negative) 02/13/24 16:05 Ur Leukocyte Esterase Negative (Negative) 02/13/24 16:05 Urine RBC None /hpf (0-2) 02/13/24 16:05 Urine WBC None /hpf (0-5) 02/13/24 16:05 Ur Squamous Epith Cells None /hpf (0-5) 02/13/24 16:05 Amorphous Sediment Not Reportable 02/13/24 16:05 Urine Bacteria None /hpf (NONE) 02/13/24 16:05 Urine Mucus None /hpf 02/13/24 16:05 Adenovirus (PCR) Not detected (NOT DETECT) 02/13/24 13:54 C. pneumoniae DNA (PCR) Not detected (NOT DETECT) 02/13/24 13:54 Coronavirus 229E (PCR) Not detected (NOT DETECT) 02/13/24 13:54 Human Metapneumovir PCR Not detected (NOT DETECT) 02/13/24 13:54 Influenza A (H1) PCR Not detected (NOT DETECT) 02/13/24 13:54 Influ A (H1/09) PCR Not detected (NOT DETECT) 02/13/24 13:54 Influenza A (H3) PCR Not detected (NOT DETECT) 02/13/24 13:54 Influenza Type A (PCR) Not detected (NOT DETECT) 02/13/24 13:54 Influenza Type B (PCR) Not detected (NOT DETECT) 02/13/24 13:54 M. pneumoniae (PCR) Not detected (NOT DETECT) 02/13/24 13:54 Parainfluenza 1 (PCR) Not detected (NOT DETECT) 02/13/24 13:54 Parainfluenza 2 (PCR) Not detected (NOT DETECT) 02/13/24 13:54 Parainfluenza 3 (PCR) Not detected (NOT DETECT) 02/13/24 13:54 Parainfluenza 4 (PCR) Not detected (NOT DETECT) 02/13/24 13:54 RSV Type A (PCR) Not detected (NOT DETECT) 02/13/24 13:54 RSV Type B (PCR) Not detected (NOT DETECT) 02/13/24 13:54 Entero/Rhino (PCR) Not detected (NOT DETECT) 02/13/24 13:54 SARS-CoV-2 (PCR) Not detected (NOT DETECT) 02/13/24 13:54 Vitals Last Vital Signs Temp 97.7 F 02/17/24 07:31 Pulse 64 02/17/24 08:05 Resp 16 02/17/24 07:58 BP 125/74 02/17/24 07:31 Pulse Ox 92 02/17/24 07:58 O2 Del Method Nasal Cannula 02/17/24 07:58 O2 Flow Rate 4 02/17/24 07:58 Discharge Plan Discharge Patient Disposition: Home Condition: Stable Prescriptions: New prednisone 20 mg tablet 20 mg PO BID 5 Days Qty: 10 0RF levofloxacin 750 mg tablet 750 mg PO DAILY 5 Days Qty: 5 0RF Continued vitamin E (dl, acetate) 45 mg (100 unit) capsule 45 mg PO DAILY gabapentin 100 mg capsule 100 mg PO TID PRN (Reason: pain) pyridoxine (vitamin B6) 100 mg tablet 50 mg PO DAILY prochlorperazine maleate 10 mg tablet 10 mg PO Q6H PRN (Reason: Nausea And Vomiting) omeprazole 40 mg capsule,delayed release(DR/EC) 40 mg PO DAILY Rx Instructions: before breakfast ondansetron HCl 8 mg tablet 8 mg PO Q12H PRN (Reason: Nausea) folic acid 1 mg tablet 1 mg PO DAILY Qty: 90 3RF tamsulosin 0.4 mg capsule 0.4 mg PO DAILY finasteride 5 mg tablet 5 mg PO DAILY fluticasone propion-salmeterol [Wixela Inhub] 250-50 mcg/dose blister with device 1 inh inhalation BID Spiriva Respimat 2.5 mcg/actuation mist 2 puff inhalation DAILY albuterol sulfate [ProAir HFA] 90 mcg/actuation HFA aerosol inhaler 2 puff inhalation Q6H PRN (Reason: Shortness Of Breath) metformin 500 mg tablet 500 mg PO DAILY famotidine [Pepcid] 20 mg tablet 20 mg PO BID psyllium husk [Metamucil] 0.4 gram capsule 0.4 g PO DAILY diclofenac sodium 75 mg tablet,delayed release (DR/EC) 75 mg PO Q12H PRN (Reason: moderate to severe pain as needed) Qty: 30 1RF (DME) diabetic shoes with 3 custom inserts See Rx Instructions .Route .MEDSUPPLY Qty: 1 0RF Rx Instructions: As directed to the [place] atorvastatin 40 mg Tablet 40 mg PO QPM cetirizine 10 mg Tablet 10 mg PO DAILY pantoprazole 40 mg Tablet,Delayed Release (Dr/Ec) 40 mg PO DAILY megestrol 20 mg Tablet 20 mg PO QID Calcium 600 + D(3) 600 mg-10 mcg (400 unit) Tablet 1 tab PO DAILY Held prednisone 5 mg tablet 5 mg PO DAILY Qty: 90 1RF Hold Instructions: Resume on 02/23/24. Keytruda 25 mg/mL solution See Rx Instructions IV .COMPLEX Hold Instructions: Resume on 03/09/24. hold until you see dr turcios Rx Instructions: intravenously every 6 weeks; methotrexate sodium 2.5 mg tablet 7.5 mg PO Q7D Hold Instructions: Resume on 03/02/24. hold until you see rheumatology Rx Instructions: on Saturday Discharge Orders: Discharge Order (Routine); Ordered 02/17/24 Ordered By: Ryne Roy Referrals: Jennifer Gonzalez FNP [Primary Care Provider] - Discharge Diet: Cardiac Discharge Activity: Resume usual activity Patient Instructions: Opioid Safety Activity Restrictions/Additional Instructions: - Follow-up with Dr. Turcios this week ? Please monitor blood sugars closely -Please start prednisone burst as prescribed, ? Hold methotrexate until you see rheumatology ? Please do not take Keytruda until you speak to Dr. Turcios ? Take antibiotics as prescribed Discharge Attestations Time Spent in Discharge Care*: greater than 30 min Quality Metrics Clinical Quality Measures [ No reported AMI, CVA or VTE this stay] Coding Level of Care Code 21763 Total time (in minutes) for Discharge: 45 Diagnoses Hypoxia R09.02 Pneumonia J18.9 Centrilobular emphysema J43.2 COPD type: emphysema Emphysema type: centrilobular Type 2 diabetes mellitus without complication, without long-term current use of insulin E11.9 Diabetes mellitus type: type 2 Diabetes mellitus longterm insulin use: without longterm use Diabetes mellitus complication status: without complication Other cardiomyopathy I42.8 Cardiomyopathy type: other Malignant neoplasm of esophagus, unspecified location C15.9 Malignant neoplasm of esophagus location: unspecified location 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
--- NOTE | 2024-02-17 11:28 | PC.SOCIAL ---
IMM updated Updated pt on IMM. No questions voiced. Provided pt a copy. Initialed, dated, & timed copy in chart.
[2024-02-17 11:33] VITALS: BP 125/74; PULSE 64; RESP 16; TEMP 36.5; O2SAT 92
[2024-02-17 15:14] LABS: Methicillin-Resist S.aureu PCR NOT DETECTED (NOT DETECTED)
== END 2024-02-17 12:54 | disposition home or self-care (01) | DRG 190 ==
LOC: ER 13:05 → MEDSURG 15:50
PROVIDERS: Admitting Provider Internal Medicine; Emergency Provider Emergency Medicine; PCP Nurse Practitioner; Visit Provider Family Medicine
DX: J44.0 Chronic obstructive pulmonary disease with (acute) lower respiratory infection (principal); J18.9 Pneumonia, unspecified organism; I42.9 Cardiomyopathy, unspecified; C15.9 Malignant neoplasm of esophagus, unspecified; J44.1 Chronic obstructive pulmonary disease with (acute) exacerbation; E11.9 Type 2 diabetes mellitus without complications; Z87.891 Personal history of nicotine dependence; Z99.81 Dependence on supplemental oxygen; Z79.69 Long term (current) use of other immunomodulators and immunosuppressants; Z79.52 Long term (current) use of systemic steroids; M45.9 Ankylosing spondylitis of unspecified sites in spine; Z79.84 Long term (current) use of oral hypoglycemic drugs
CPT/HCPCS: 36415; 36416; 36600; 51702; 71045; 71275; 80053; 81001; 82805; 82962; 83735; 83880; 84145; 85025; 85610; 86140; 87040; 87070; 87205; 87486; 87581; 87633; 87641; 92610; 93005; 93308; 94640; 96372; J0456; J0696; J1650; J1815; J1940; J2543; J2919; J7030; J7050; J7626; Q9967

== ENCOUNTER 2024-02-20 09:03 | Oncology outpatient (recurring) (ONCR) | payer OTHER, SELFPAY ==
[2024-02-20 09:19] LABS: Basophils % 0.1 %; Eosinophils % 0.1 %; Hematocrit 41.6 % (37-53); Lymphocytes # 0.6 10^3/uL (0.8-4.8); Lymphocytes % 4.8 %; Mean Corpuscular HGB Conc 32.5 g/dL (30-55); Mean Corpuscular Hemoglobin 28.5 pg (27-33); Mean Corpuscular Volume 87.8 fl (82-101); Mean Platelet Volume 8.3 fL (7.4-10.4); Monocytes # 0.8 10^3/uL (0.2-0.9); Monocytes % 6.2 %; Neutrophils # 11.03 10^3/uL (1.8-7.7); Neutrophils % 87.3 %; Nucleated Red Blood Cells % 0 %; Platelet Count 389 10^3/cmm (157-399); Red Blood Count 4.74 10^6/uL (3.85-5.65); Red Cell Distribution Width 16.3 % (12.1-15.1); White Blood Count 12.62 10^3/uL (3.29-11.43)
[2024-02-20 09:52] LABS: Alanine Aminotransferase 51 U/L (0-41); Albumin Level 3.6 g/dL (3.5-5.2); Alkaline Phosphatase 93 U/L (40-130); Anion Gap 13.4 (5-19); Aspartate Amino Transferase 21 U/L (0-40); Blood Urea Nitrogen 28 mg/dL (8-23); Carbon Dioxide 28 mmol/L (22-29); Chloride 101 mmol/L (98-107); Glucose 158 mg/dL (65-115); Osmolality Calculated 295 mOsm/kg (285-295); Potassium 4.4 mmol/L (3.5-5.1); Sodium 138 mmol/L (136-145); Thyroid Stimulating Hormone 0.93 uIU/mL (0.27-4.20); Total Protein 6.6 g/dL (6.6-8.7)
== END 2024-03-03 23:59 | disposition home or self-care (01) ==
PROVIDERS: Internal Medicine Medical Oncology; PCP Nurse Practitioner; Visit Provider Internal Medicine Hematology & Oncology
DX: Z53.9 Procedure and treatment not carried out, unspecified reason (principal); C16.0 Malignant neoplasm of cardia; Z79.899 Other long term (current) drug therapy
CPT/HCPCS: 80053; 84443; 85025; 99214

== ENCOUNTER → 2024-02-24 11:13 | Outpatient (BNVA) | payer OTHER, SELFPAY | PROVIDERS: PCP Nurse Practitioner; Visit Provider Podiatrist Foot & Ankle Surgery | DX: B35.1 Tinea unguium (principal); G62.9 Polyneuropathy, unspecified; I73.9 Peripheral vascular disease, unspecified; E11.42 Type 2 diabetes mellitus with diabetic polyneuropathy; Z79.84 Long term (current) use of oral hypoglycemic drugs | CPT/HCPCS: 11721 ==

== ENCOUNTER 2024-03-11 08:24 | Outpatient (CLI) | payer OTHER, SELFPAY ==
[2024-03-11] MEDS: iohexol 350 mg/mL 500 mL Btl (per mL) PO (08:34)
--- NOTE | 2024-03-11 09:30 | CT_ITS ---
WS: [id number] CT CHEST, ABDOMEN AND PELVIS WITH CONTRAST HISTORY: restaging esophageal cancer. TECHNIQUE: Contiguous 5 mm axial imaging performed through the chest, abdomen and pelvis with IV cont rast, oral contrast has been provided. Coronal and sagittal reformats chest. Coronal and sagittal ref ormats through the abdomen and pelvis. All CT scans at [facility] use at least one of these d ose optimization techniques: automated exposure control; mA and/or kV adjustment per patient size (in cludes targeted exams where dose is matched to clinical indication); or iterative reconstruction. CONTRAST: Omnipaque 350; 100 mL IV. DLP: 680.08 mGy.cm COMPARISON: CT 02/13/2024, 02/07/2024, 07/24/[address]: Severe centrilobular emphysema. Subpleural slightly spiculated nodule in the anterior LEFT upper lobe measures 12 x 4 mm. This nodule is unchanged since 02/13/2024 and new since 07/24/2023. Inte rval improvement in the interstitial thickening noted on 02/13/2024. There is still residual periphera l interstitial thickening which is probably chronic fibrosis. Moderate atherosclerosis thoracic aorta . Normal size pulmonary artery. Normal size heart. Status post esophagectomy with gastric pull-through. No recurrent mass or obstruction. Abdomen CT: Normal size liver. Hepatic cyst superior RIGHT lobe 17 mm. Normal portal vein. Normal gal lbladder and spleen. No adrenal mass. Normal gallbladder. Normal pancreas. Normal size kidneys. Multi ple cysts in the RIGHT kidney. No solid mass or obstruction. Nonobstructing calcification superior po le LEFT kidney. Extensive atherosclerosis aorta. Abdominal aortic aneurysm, 4.2 cm in transverse diam eter. The aneurysm has increased in size since 07/24/2023 x 0.5 cm. No GI tract obstruction. Moderate constipation. Prior appendectomy. No ascites or adenopathy. Pelvic CT: No free fluid. Nondistended urinary bladder. Prostate enlargement. Mild anterior wedging of T7 and T9. CT/CT chest abdpel w/*[id number] IMPRESSION: 1. Status post esophagectomy with gastric pull-through, unchanged. 2. Subpleural slightly spiculated nodule in the anterior LEFT upper lobe is un changed measuring 12 x 4 mm. No change since the most recent study of 02/13/2024 but new since 07/24/2023. Recommend follow-up chest CT in 3 months. 3. Severe emphysema. 4. Increase in size of the abdominal aortic aneurysm from 3.7 to 4.2 cm in tra nsverse diameter since 07/24/2023. 5. Hepatic and RIGHT renal cysts. 6. Chronic pulmonary fibrosis. 7. No metastatic disease to the liver or adrenal glands.
[2024-03-11] MEDS: iohexol 350 mg/mL 500 mL Btl (per mL) IV (09:59)
== END 2024-03-11 08:25 | disposition home or self-care (01) ==
LOC: RAD 08:24
PROVIDERS: PCP Nurse Practitioner; Visit Provider Nurse Practitioner Family
DX: C15.9 Malignant neoplasm of esophagus, unspecified (principal); J43.9 Emphysema, unspecified; J84.10 Pulmonary fibrosis, unspecified; N28.1 Cyst of kidney, acquired; K76.89 Other specified diseases of liver
CPT/HCPCS: 71260; 74177; Q9967

== ENCOUNTER → 2024-03-19 09:29 | Outpatient (BNVA) | payer OTHER, SELFPAY | PROVIDERS: PCP Nurse Practitioner; Visit Provider Internal Medicine Pulmonary Disease | DX: Z09 Encounter for follow-up examination after completed treatment for conditions other than malignant neoplasm (principal); J43.2 Centrilobular emphysema; Z91.89 Other specified personal risk factors, not elsewhere classified; C15.9 Malignant neoplasm of esophagus, unspecified; Z87.891 Personal history of nicotine dependence | CPT/HCPCS: 99214 ==

== ENCOUNTER 2024-03-31 10:10 | Outpatient (CLI) | payer OTHER, SELFPAY ==
--- NOTE | 2024-03-31 10:30 | PETR_ITS ---
PROCEDURE INFORMATION: Exam: PET/CT Skull Base to Mid-thigh Exam date and time: 03/31/2024 10:57 AM Age: 78 years old Clinical indication: Abnormal findings; . Status post esophagectomy with gastric pull-through, unchanged. 2. Subpleural slightly spiculated nodule in the anterior left upper lobe is unchanged measuring 12 x 4 mm. No change since the most recent study of 02/13/2024 but new since 07/24/2023. Recommend follow-up chest CT in 3 months. 3. Severe emphysema. 4. Increase in size of the abdominal aortic aneurysm from 3.7 to 4.2 cm in transverse diameter since 07/24/2023. 5. Hepatic and right renal cysts. 6. Chronic pulmonary fibrosis. 7. No metastatic disease to the liver or adrenal glands; Prior surgery; Surgery date: 6+ months; Surgery type: Port, appy; Additional info: Spiculated subpleural 1.5 x 1 cm anterior left upper lobe, observed on cta LABS AND CLINICAL REPORTS: Glucose: 112 mg/dl Treatment strategy for malignancy (PET staging): Restaging (PS) TECHNIQUE: Imaging protocol: Following at least four-hour fasting and following the injection of radiopharmaceutical, low dose CT images were obtained. Then, PET images were obtained. Attenuation corrected images were constructed using the CT scan. Fused images of PET and CT were reviewed. The standardized uptake values (SUV) reported below are maximum values within a region of interest, expressed in gm/ml. Exam includes orbital meatal line to mid-thigh. Radiopharmaceutical: 10.39 mCi F-18 FDG (Fluorodeoxyglucose), IV. Time of imaging post radiopharmaceutical administration: 1 hour Injection site: Left antecubital COMPARISON: CT chest abdpel w/*[id number] 03/11/2024 9:35 AM, CT chest 02/07/2024, CT chest, abdomen and pelvis 07/24/2023 FINDINGS: Brain: Visualized brain has normal physiologic uptake. Pharynx: No abnormal uptake. Larynx: No abnormal uptake. Lungs, pleura and trachea: No abnormal uptake. A radiotracer avid spiculated pleural based anterior left upper lobe solid nodule measures 1.6 x 1.2 cm on series 3, image 83, SUV max 6.3. Extensive bilateral centrilobular emphysematous changes are present. Heart: Normal physiologic uptake. Mediastinal space: No abnormal uptake. Liver: No abnormal uptake. A non radiotracer avid circumscribed ovoid low-density structure in the dome of the right liver lobe measures 2.1 x 1.8 cm on series 3, image 123 compatible with a benign cyst or hemangioma. Gallbladder and bile ducts: No abnormal uptake. Pancreas: No abnormal uptake. Spleen: No abnormal uptake. Adrenal glands: No abnormal uptake. Kidneys and ureters: Normal physiologic uptake. Non radiotracer avid rounded foci of low density in the right kidney are compatible with probable benign cyst. Nonobstructing left renal calculi are present. Stomach and bowel: Postoperative changes of esophagectomy with gastric pull-through procedure are noted. Uptake within the mid stomach in the inferior thorax is noted on series 3, image 126, SUV max 4.0. Assessment of the wall of the stomach in this region is limited by incomplete distension. A surgical staple line in the right colon is noted with minimal, likely physiologic uptake at the surgical anastomotic site, SUV max 3.1. No definite correlating lesion is region is noted on the CT images. An additional surgical staple line is noted in the region of the cecum. There are scattered colonic diverticula. Vasculature: No abnormal uptake. There are diffuse atherosclerotic changes. Aneurysmal dilatation of the infrarenal abdominal aorta is noted measuring 3.8 cm. Lymph nodes: No abnormal uptake. No lymphadenopathy in the head, neck, chest, abdomen, pelvis, and extremities. Skeleton: No abnormal uptake. An ovoid sclerotic density in the intertrochanteric region of the left femur on series 3, image 247 is not radiotracer avid compatible with a benign bone island. Soft tissues: No abnormal uptake in the visualized head, neck, chest, abdomen, pelvis, and extremities. METRICS: Mediastinal blood pool: SUV max 2.2 PET/PET skulltothi SUBSEQ [id number] IMPRESSION: 1. A radiotracer avid pleural based left upper lobe nodule is radiotracer avid (SUV max 6.3) concerning for malignancy. 2. Postoperative changes of partial esophagectomy with gastric pull-through procedure are noted. Uptake within the wall of the mid stomach in the inferior thorax is noted without a definite correlating lesion on the CT images and is likely physiologic or inflammatory in nature. A malignant etiology is less likely but cannot be entirely excluded. Assessment of the wall is limited by incomplete distension. 3. Infrarenal abdominal aortic aneurysm. 4. Bilateral centrilobular emphysematous changes. 5. Additional nonurgent findings as detailed above.
== END 2024-03-31 10:11 | disposition home or self-care (01) ==
LOC: RAD 10:10
PROVIDERS: PCP Nurse Practitioner; Visit Provider Nurse Practitioner Family
DX: R93.89 Abnormal findings on diagnostic imaging of other specified body structures (principal); J43.8 Other emphysema; I71.40 Abdominal aortic aneurysm, without rupture, unspecified; K76.89 Other specified diseases of liver; N28.1 Cyst of kidney, acquired; J84.10 Pulmonary fibrosis, unspecified
CPT/HCPCS: 78815; A9552

== ENCOUNTER → 2024-04-01 13:02 | Outpatient (BNVA) | payer OTHER, SELFPAY | PROVIDERS: PCP Nurse Practitioner; Visit Provider Internal Medicine Rheumatology | DX: C15.9 Malignant neoplasm of esophagus, unspecified (principal); M45.2 Ankylosing spondylitis of cervical region; Z15.89 Genetic susceptibility to other disease; Z79.899 Other long term (current) drug therapy | CPT/HCPCS: 99214 ==

== ENCOUNTER → 2024-04-28 09:54 | Outpatient (BNVA) | payer OTHER, SELFPAY | PROVIDERS: PCP Nurse Practitioner; Visit Provider Nurse Practitioner Family | DX: I42.8 Other cardiomyopathies (principal) | CPT/HCPCS: 99213 ==

== ENCOUNTER → 2024-05-04 10:54 | Outpatient (BNVA) | payer OTHER, SELFPAY | PROVIDERS: PCP Nurse Practitioner; Visit Provider Podiatrist Foot & Ankle Surgery | DX: B35.1 Tinea unguium (principal); G62.9 Polyneuropathy, unspecified; I73.9 Peripheral vascular disease, unspecified; E11.42 Type 2 diabetes mellitus with diabetic polyneuropathy; Z79.84 Long term (current) use of oral hypoglycemic drugs | CPT/HCPCS: 11721 ==

== ENCOUNTER → 2024-07-10 10:30 | Outpatient (BNVA) | payer OTHER, SELFPAY | PROVIDERS: PCP Nurse Practitioner; Visit Provider Podiatrist Foot & Ankle Surgery | DX: B35.1 Tinea unguium (principal); G62.9 Polyneuropathy, unspecified; I73.9 Peripheral vascular disease, unspecified; E11.42 Type 2 diabetes mellitus with diabetic polyneuropathy; Z79.84 Long term (current) use of oral hypoglycemic drugs | CPT/HCPCS: 11721 ==

== ENCOUNTER 2024-08-04 06:30 | Outpatient (RCR) | payer OTHER, SELFPAY | END 2024-09-03 23:59 | disposition home or self-care (01) | LOC: WPT 06:30 | PROVIDERS: Visit Provider Nurse Practitioner | DX: R26.89 Other abnormalities of gait and mobility (principal) | CPT/HCPCS: 97161; 97530 ==

== ENCOUNTER → 2024-09-21 15:34 | Outpatient (BNVA) | payer OTHER, SELFPAY | PROVIDERS: PCP Nurse Practitioner; Visit Provider Podiatrist Foot & Ankle Surgery | DX: B35.1 Tinea unguium (principal); G62.9 Polyneuropathy, unspecified; I73.9 Peripheral vascular disease, unspecified; E11.42 Type 2 diabetes mellitus with diabetic polyneuropathy; Z79.84 Long term (current) use of oral hypoglycemic drugs | CPT/HCPCS: 11721 ==

== ENCOUNTER → 2024-09-30 13:01 | Outpatient (BNVA) | payer OTHER, SELFPAY | PROVIDERS: PCP Nurse Practitioner; Visit Provider Internal Medicine Rheumatology | DX: C15.9 Malignant neoplasm of esophagus, unspecified (principal); M45.2 Ankylosing spondylitis of cervical region; Z15.89 Genetic susceptibility to other disease; Z79.899 Other long term (current) drug therapy; E11.9 Type 2 diabetes mellitus without complications; J44.9 Chronic obstructive pulmonary disease, unspecified; J96.11 Chronic respiratory failure with hypoxia | CPT/HCPCS: 99214 ==

== ENCOUNTER → 2024-10-26 14:36 | Outpatient (BNVA) | payer OTHER, SELFPAY | PROVIDERS: PCP Nurse Practitioner; Visit Provider Internal Medicine Cardiovascular Disease | DX: I42.8 Other cardiomyopathies (principal); E11.9 Type 2 diabetes mellitus without complications; I73.9 Peripheral vascular disease, unspecified; Z91.89 Other specified personal risk factors, not elsewhere classified; F17.200 Nicotine dependence, unspecified, uncomplicated; Z79.84 Long term (current) use of oral hypoglycemic drugs | CPT/HCPCS: 99214 ==

== ENCOUNTER → 2025-02-23 11:14 | Outpatient (BNVA) | payer OTHER, SELFPAY | PROVIDERS: PCP Nurse Practitioner; Visit Provider Podiatrist Foot & Ankle Surgery | DX: E11.42 Type 2 diabetes mellitus with diabetic polyneuropathy (principal); B35.1 Tinea unguium; G62.9 Polyneuropathy, unspecified; I73.9 Peripheral vascular disease, unspecified; B35.3 Tinea pedis; Z79.84 Long term (current) use of oral hypoglycemic drugs | CPT/HCPCS: 11721; 99213 ==